=== PATIENT | female | born 1955 | race Two or more races ===

== ENCOUNTER 2021-12-28 12:59 | Outpatient (REF) | payer MEDICARE, SELFPAY ==
--- NOTE | ~2021-12-28 | MM_ITS ---
EXAMINATION: MM SCREENING DIGITAL BREAST TOMOSYNTHESIS, BILATERAL CLINICAL INFORMATION: Screening. Asymptomatic. The lifetime risk of breast cancer based on the Tyrer-Cuzick Model is 6%. COMPARISON: Mammography: 06/29/2018, 05/20/2017, 02/21/2015 TECHNIQUE: Digital breast tomosynthesis is performed in both the craniocaudal and mediolateral oblique views along with computer-aided detection (CAD). Synthesized 2D images are generated from the tomosynthesis. FINDINGS: There are scattered areas of fibroglandular density (ACR BI-RADS breast composition Category b). There are no significant masses, abnormal calcifications, or other abnormalities. Parenchymal pattern is similar to prior studies. There is no developing density or architectural abnormality. The axilla and skin contours are unremarkable. No significant changes. MM/MM tomosynthesis screening BI IMPRESSION: No mammographic evidence of malignancy. ASSESSMENT: BI-RADS 1: Negative RECOMMENDATION: Routine annual mammography screening. This patient's information was entered into a reminder system with a target due date for their next mammogram.
--- NOTE | ~2021-12-28 | MM_ITS ---
EXAMINATION: BONE DENSITOMETRY CLINICAL INDICATION: Encounter for screening for osteoporosis. Postmenopausal. COMPARISON: This is the patient's baseline examination. TECHNIQUE: Using a [email or web address] DXA System (software version: 13.1) manufactured by [employer], dual-energy x-ray absorptiometry was performed of the lumbar spine and left hip. The images are of good technical quality. Summary results are attached. FINDINGS: AP SPINE L1-L4: BMD 1.271 g/cm2, Z-score 1.6, T-score 0.8, normal. LEFT FEMUR, NECK: BMD 0.725 g/cm2, Z-score -1.3, T-score -2.3, osteopenia. LEFT FEMUR, TOTAL: BMD 0.649 g/cm2, Z-score -2.2, T-score -2.8, osteoporosis. IDENTIFIED RISK FACTORS: Menopause. Height loss. HISTORY OF FRACTURE: None listed. MEDICATIONS: Vitamin D. MM/XR DEXA axial skeleton IMPRESSION: 1. DIAGNOSIS: Osteoporosis based on the lowest T-score value of -2.8 in the total femur applying World Health Organization criteria. 2. 10-YEAR FRACTURE RISK PREDICTION, FRAX: Major osteoporotic fracture (clinical spine, forearm, hip or shoulder) 6.3%. Hip fracture 1.1%. 3. Treatment Recommendations: NOF guidelines recommend consideration for treatment in postmenopausal women and men age 50 and older presenting with the following: -A hip or vertebral (clinical or morphometric) fracture. -T-score less than or equal to -2.5 at the femoral neck or spine after appropriate evaluation to exclude secondary causes. -Low bone mass at the hip or spine and a 10-year fracture probability by FRAX of greater than or equal to 3% for hip fracture or greater than or equal to 20% for major osteoporotic fracture based on the [place] adapted WHO algorithm. 4. Other Recommendations: All treatment decisions require clinical judgment and consideration of individual patient factors, including patient preferences, comorbidities, previous drug use, risk factors not captured in the FRAX model (e.g. frailty, falls, vitamin D deficiency, increased bone turnover, interval significant decline in bone density) and possible under or overestimation of fracture risk by FRAX. Additional medical evaluation for secondary cause of low bone mineral density may be appropriate. FUTURE SCAN RECOMMENDATION: People with diagnosed cases of osteoporosis or at high risk for fracture should have regular bone mineral density tests. For patients eligible for Medicare, routine testing is allowed once every 2 years. The testing frequency can be increased to one year for patients who have rapidly progressing disease, those who are receiving or discontinuing medical therapy to restore bone mass, or have additional risk factors.
== END 2021-12-28 13:00 | disposition home or self-care (01) ==
LOC: HO.MAMMO 12:59
PROVIDERS: PCP Internal Medicine; Visit Provider Internal Medicine
DX: Z13.820 Encounter for screening for osteoporosis (principal); Z78.0 Asymptomatic menopausal state; Z12.31 Encounter for screening mammogram for malignant neoplasm of breast
CPT/HCPCS: 77063; 77067; 77080

== ENCOUNTER → 2022-07-02 13:02 | Outpatient (BNVA) | payer MEDICARE, SELFPAY | PROVIDERS: PCP Internal Medicine; Visit Provider Internal Medicine Endocrinology, Diabetes & Metabolism | DX: E21.0 Primary hyperparathyroidism (principal) | CPT/HCPCS: 99202 ==

== ENCOUNTER 2022-10-29 12:23 | Outpatient (REF) | payer OTHER, SELFPAY ==
[2022-10-29 14:33] LABS: Vitamin D 25-OH Total 55.2 ng/mL (>30)
[2022-10-30 11:38] LABS: Calcium (PTHI) 9.8 mg/dL (8.6-10.4); PTHI 114 pg/mL (16-77)
== END 2022-10-29 12:24 | disposition home or self-care (01) ==
LOC: HO.LAB 12:23
PROVIDERS: PCP Internal Medicine; Visit Provider Internal Medicine Endocrinology, Diabetes & Metabolism
DX: E34.9 Endocrine disorder, unspecified (principal)
CPT/HCPCS: 36415; 82306; 83970; 99212

== ENCOUNTER 2022-11-11 13:45 | Outpatient (REF) | payer OTHER, SELFPAY ==
[2022-11-11 15:01] LABS: Total Volume 24 Hour Urine 2225 mL
[2022-11-11 15:11] LABS: Creatinine, 24Hr Urine 1.6 G/Day (1.0-2.0); Creatinine, mg/dL 71.33
[2022-11-12 17:53] LABS: Calcium, 24 Hr Urine 149 mg/24 h; Calcium/Creatinine Ratio 97 mg/g creat (30-275); Creatinine 24Hr Urine 1.54 g/24 h (0.50-2.15)
== END 2022-11-11 13:46 | disposition home or self-care (01) ==
LOC: HO.LNP 13:45
PROVIDERS: Visit Provider Internal Medicine Endocrinology, Diabetes & Metabolism
DX: E34.9 Endocrine disorder, unspecified (principal)
CPT/HCPCS: 82340; 82570

== ENCOUNTER 2022-12-30 12:43 | Outpatient (REF) | payer MEDICARE, SELFPAY ==
--- NOTE | ~2022-12-30 | MM_ITS ---
EXAMINATION: MM SCREENING DIGITAL BREAST TOMOSYNTHESIS, BILATERAL CLINICAL INFORMATION: Screening. Asymptomatic. The lifetime risk of breast cancer based on the Tyrer-Cuzick Model is 7%. COMPARISON: Mammography: 12/28/2021, 06/29/2018, 05/20/2017 TECHNIQUE: Digital breast tomosynthesis is performed in both the craniocaudal and mediolateral oblique views along with computer-aided detection (CAD). Synthesized 2D images are generated from the tomosynthesis. FINDINGS: There are scattered areas of fibroglandular density (ACR BI-RADS breast composition Category b). There are no significant masses, abnormal calcifications, or other abnormalities. No architectural abnormality or developing density or significant change from prior studies. The axilla and skin contours are unremarkable. MM/MM tomosynthesis screening BI IMPRESSION: No mammographic evidence of malignancy. ASSESSMENT: BI-RADS 1: Negative RECOMMENDATION: Routine annual mammography screening. This patient's information was entered into a reminder system with a target due date for their next mammogram.
== END 2022-12-30 12:44 | disposition home or self-care (01) ==
LOC: HO.MAMMO 12:43
PROVIDERS: Visit Provider Internal Medicine
DX: Z12.31 Encounter for screening mammogram for malignant neoplasm of breast (principal)
CPT/HCPCS: 77063; 77067

== ENCOUNTER → 2023-02-25 12:44 | Outpatient (BNVA) | payer MEDICARE, SELFPAY | PROVIDERS: PCP Internal Medicine; Visit Provider Internal Medicine Endocrinology, Diabetes & Metabolism | DX: E34.9 Endocrine disorder, unspecified (principal) | CPT/HCPCS: 99212 ==

== ENCOUNTER 2023-06-13 09:55 | Outpatient (REF) | payer MEDICARE, SELFPAY ==
[2023-06-13 12:00] LABS: Cholesterol 146 mg/dL (<200); HDL Cholesterol 38 mg/dL (>40); LDL Cholesterol Calculated 76 mg/dL (<100); Triglycerides 162 mg/dL (<150)
[2023-06-13 12:01] LABS: Alanine Aminotransferase 26 U/L (0-31); Albumin Level 4.1 g/dL (3.5-5.0); Alkaline Phosphatase 74 U/L (39-117); Aspartate Amino Transferase 27 U/L (5-31); Bilirubin Direct 0.2 mg/dL (0.0-0.5); Bilirubin Total 0.6 mg/dL (0.0-1.0); Total Protein 7.2 g/dL (6.5-8.0)
[2023-06-13 12:39] LABS: Reflex LDLD? No
[2023-06-13 13:00] LABS: Creatinine Urine 138.71 mg/dL; Microalbumin Urine < 5.0 mg/L
[2023-06-17 11:09] LABS: TS Negative Control Passed; TS Panel A 0; TS Panel B 0; TS Positive Control Passed; TSpotTB Negative (Negative)
== END 2023-06-13 09:56 | disposition home or self-care (01) ==
LOC: HO.HHCL 09:55
PROVIDERS: Visit Provider Internal Medicine
DX: I10 Essential (primary) hypertension (principal); E11.9 Type 2 diabetes mellitus without complications; E21.3 Hyperparathyroidism, unspecified
CPT/HCPCS: 36415; 80061; 80076; 82043; 82570; 86481

== ENCOUNTER 2023-11-26 10:32 | Outpatient (AMB) | payer MEDICARE, SELFPAY ==
--- NOTE | 2023-11-26 10:34 | MHC.OFFVIS ---
Intake Vital Signs 11/26/23 10:35 Height 5 ft 3.74 in Weight 181 lb 14.102 oz BMI 31.5 BP 130/84 Blood Pressure Location Lt brachial Position Sitting Pulse 82 Pulse Source Pulse Oximeter Intake Visit Reasons: f/u hyperparathyroidism-# not in serv Intake Note: Patient present today for Hyperparathyroidism follow up visit. Emergency Preparedness Manager Required: Yes Emergency Preparedness Manager Language: Network Security Architect Name: Ana medical staff Information Interpreted: non-clinical & clinical Accompanied by: Self / Same As Patient Allergies No Known Allergies Allergy (Verified 11/26/23 10:41) Medication List - Last Reconciled 11/26/23 by Mino Navarro MD blood sugar diagnostic (Propable Verio test strips) As directed blood-glucose meter (Propable Verio Flex Meter) As directed calcium carbonate-vitamin D3 600 mg-25 mcg (1,000 unit) caps PO clotrimazole 1% appl topical estradiol 0.01%(0.1mg/gram) 1 g vaginal 2XW lancets (ThePresent.CoTouch Delica Plus Lancet) As directed loratadine 10 mg PO QAM losartan 50 mg PO DAILY lovastatin 20 mg PO QPM metformin ER 500 mg PO QPM HPI HPI Comments History of Present Illness Details 68 YO F with who is seen in consultation at the request of PCP for elevated PTH First noted to have high PTH -just learned about this . Had parathyroid surgery 10 yrs ago . Not sure of surgeon. Currently using Calcium supplement 600 mg BID . Takes 1000 IU of Vitamin D daily. Not Currently using HCTZ. Kidney stones: No Osteoporosis: No History of [place] use: no Biotin use: no Family history of high calcium or kidney stones: No DXA: Labs: Saw Dr. Aguirre for possible rexploration of parathyroids [facility] Medical History (Updated 07/02/22 @ 13:15 by Mino Navarro MD) Elevated parathyroid hormone Surgical History History of delivery Hx of partial thyroidectomy Family History Mother High blood pressure Prediabetes Father High blood pressure Social History Household Members: Spouse and Children Household Members Other:: , daughter Alcohol intake: never Patient Tobacco Use Status: Never used Tobacco Assessment & Plan Assessment & Plan (1) Elevated parathyroid hormone: Code(s): E34.9 - Endocrine disorder, unspecified Plan: This is a 68-year-old female with a history of primary hyperparathyroidism status post parathyroidectomy with persistent elevation of PTH and osteoporosis. Plan is to send the patient for re-exploration of the parathyroid to Dr. Haines at [facility] Orders: Referrals Ear/Nose/Throat Referral E34.9 - Endocrine disorder, unspecified Coding Level of Care Code Est Pt Level 3 (77211) Diagnoses Elevated parathyroid hormone E34.9
[2023-11-26 10:35] VITALS: BP 130/84; PULSE 82; BMI 31.5
== END 2023-11-26 10:56 | disposition home or self-care (01) ==
PROVIDERS: PCP Internal Medicine; Visit Provider Internal Medicine Endocrinology, Diabetes & Metabolism
DX: E34.9 Endocrine disorder, unspecified (principal)
CPT/HCPCS: 99213

== ENCOUNTER → 2023-11-26 10:32 | Outpatient (BNVA) | payer MEDICARE, SELFPAY | PROVIDERS: PCP Internal Medicine; Visit Provider Internal Medicine Endocrinology, Diabetes & Metabolism | DX: E34.9 Endocrine disorder, unspecified (principal) | CPT/HCPCS: 99212 ==

== ENCOUNTER 2024-01-05 12:47 | Outpatient (REF) | payer MEDICARE, SELFPAY | END 2024-01-05 12:48 | disposition home or self-care (01) | LOC: HO.MAMMO 12:47 | PROVIDERS: PCP Internal Medicine; Visit Provider Internal Medicine | DX: Z12.31 Encounter for screening mammogram for malignant neoplasm of breast (principal) | CPT/HCPCS: 77063; 77067 ==

== ENCOUNTER → 2024-01-05 13:00 | Outpatient (BNV) | payer MEDICARE, SELFPAY | PROVIDERS: PCP Internal Medicine; Visit Provider Radiology Diagnostic Radiology | DX: Z12.31 Encounter for screening mammogram for malignant neoplasm of breast (principal) | CPT/HCPCS: 77063; 77067 ==

== ENCOUNTER 2025-01-10 12:40 | Outpatient (REF) | payer MEDICARE, SELFPAY ==
--- OUTSIDE RECORDS SUMMARY | 2025-01-10 14:57 | XMS_ITS | Clinical Summary ---
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) TEST BLOOD SUGAR TWICE DAILY 1 kit 3 Active fluticasone (Flonase) 50 MCG/ACT nasal spray Administer 1 spray into each nostril Once per day. 16 g 2 4 Active losartan-hydroCHL OROthiazide (Hyzaar) 100-12.5 MG tabletIndications :Primary hypertension Take 1 tablet by mouth Once per day. 90 tablet 3 4 08/16/20 25 Active calcium carbonate 1500 (600 Ca) MG tabletIndications :Hyperparathyroid ism ([facility]) take 1 tablet once a day PO 90 tablet 3 4 Active estradiol (Estrace) 0.1 MG/GM vaginal cream 1g vaginally twice weekly as needed 85 g 1 4 Active SITagliptin (Januvia) 100 MG tabletIndications :Type 2 diabetes mellitus without complication, without long-term current use of insulin ([facility]) Take 1 tablet (100 mg) by mouth Once per day. 90 tablet 3 4 08/16/20 25 Active lovastatin (Mevacor) 20 MG tablet Take 1 tablet (20 mg) by mouth with evening meal. 90 tablet 3 4 08/16/20 25 Active loratadine (Claritin) 10 MG tabletIndications :Rhinorrhea TAKE 1 TABLET BY MOUTH EVERY DAY IN THE MORNING 90 tablet 3 5 Active Diclofenac Sodium 1 % gel Apply 1 inch topically if needed in the morning and at bedtime (pain). 60 g 5 01/13/20 25 Active glucose blood test strip Use 1x/d 100 each 11 5 12/14/19 26 Active OneTouch Delica Lancets 33G misc Use to test blood sugar 1x times daily 100 each 3 5 Active clotrimazole (Lotrimin) 1 % cream Apply topically 2 times daily for 28 days. 30 g 5 01/11/20 25 Active Hospital, Clinic, or Other Facility Administered Medication Ordered Dose Route Frequency Start Date End Date Status lidocaine (Xylocaine) 2 % injection 20 mgIndications:Inflamed skin tag 20 mg IJ Once 08/06/2024 Active Active Problems Problem Noted Date Diagnosed Date Osteoarthritis of fingers of both hands 12/14/19 25 Assessment & Plan (12/13/2024 1:04 PM EDT): She has Heberden's nodes which are symptomatic. Take Tylenol and Diclofenac gel PRN. Tinea pedis of right foot 12/13/2024 Assessment & Plan (12/13/2024 1:06 PM EDT): Use Clotrimazole cream. Gastroesophageal reflux disease 04/13/2024 Assessment & Plan (04/13/2024 12:45 PM EDT): - she will hold Lovastatin for 3 weeks and keep symptom diary - we discussed about small infraction meals - elevate the head of the bed at 30 degrees Skin tag 04/13/2024 Assessment & Plan (04/13/2024 12:48 PM EDT): - on her back - refer to dermatology At high risk for osteoporosis 06/16/2023 Assessment & Plan (06/16/2023 8:35 PM EDT): Patient is postmenopausal, discussed with her re risk of falls and fractures. Order Dexa scan Postmenopausal 06/16/2023 Diabetes due to underlying condition w oth circu latory comp 06/16/2023 Encounter for preventive health examination 06/06 Assessment & Plan (06/16/2023 8:50 PM EDT): Discussed with patient re increase fresh fruit and vegetable intake. Counseled re moderate exercise as tolerated, up to 20min/d Patient feels safe at home. PAP smear UTD. No need for PAP smear any longer due to age. Reconsult prn Mammogram: UTD, next one due on 12/2023 Bone density test: TBO Eye exam: UTD, next one due on 08/2023 CRC screen: UTD, next one due on 2023 Lipids/FBS: UTD, normal. Next one due on 06/2024 Vaccinations: PPSV 23 or PCV 20 today to complete pneumococcals + Influenza IZ. Zoster, Tdap and Coivd UTD, reccommended next Covid booster when available Dental visit: UTD, next one due on 08/2023 Exercise counseling 06/16/2023 Dietary counseling 06/16/2023 Allergic rhinitis due to pollen 04/17/2023 Senile osteoporosis 04/17/2023 Primary insomnia 04/17/2023 Metabolic syndrome X 04/17/2023 IFG (impaired fasting glucose) 04/17/2023 Tinea corporis 04/17/2023 Dyslipidemia 11/14/2022 Hypertension 11/14/2022 Assessment & Plan (12/13/2024 10:46 AM EDT): Controlled. Compliant w/meds Continue Hyzaar same dose Counseled re low salt diet/increase moderate physical activity. Check home BP BIW and prn CP/ANDERSON/HAMMOND Non smoking patient. F/u in 6 months Assessment & Plan (08/16/2024 11:49 AM EST): Controlled. Compliant w/meds Continue Hyzaar same dose Counseled re low salt diet/increase moderate physical activity. Check home BP BIW and prn CP/ANDERSON/HAMMOND Non smoking patient. F/u in 6 months Assessment & Plan (04/13/2024 12:44 PM EDT): Controlled. Compliant w/meds Continue Hyzaar same dose Counseled re low salt diet/increase moderate physical activity. Check home BP BIW and prn CP/ANDERSON/HAMMOND Non smoking patient. F/u in 6 months Assessment & Plan (04/23/2023 11:59 AM EDT): BP is at goal. Continue losartan + HCTZ Counseled re low salt diet/increase moderate physical activity. Check home BP BIW and prn CP/ANDERSON/HAMMOND Non smoking patient. Order labs and fu with me in 6-8 weeks for PE. Assessment & Plan (12/26/2022 9:13 AM EDT): BP better controlled. Encouraged to take medication daily Continue lifestyle modifications. Counseled re low salt diet/increase moderate physical activity. Check home BP BIW and prn CP/ANDERSON/HAMMOND Non smoking patient. Continue losartan/hctz 100/12.5 once per day, FU with me in 2-3 months with labs. Assessment & Plan (11/14/2022 12:39 PM EST): Uncontrolled. Switch to losartan /HCTZ 100/12.5 Counseled re low salt diet/increase moderate physical activity. Check home BP BIW and prn CP/ANDERSON/HAMMOND Non smoking patient. FU with me in 4 weeks televisit. Type 2 diabetes mellitus without complication Assessment & Plan (12/13/2024 1:00 PM EDT): Controlled. A1c is at goal. Continue on Januvia. Counseled re more frequent low calorie/carb meals, avoid sweet beverages. Check fgstk once daily Encouraged physical activity as tolerated. FU in 3-4 months. Assessment & Plan (08/16/2024 11:56 AM EST): Controlled. A1c is at goal. Continue on Januvia Counseled re more frequent low calorie/carb meals, avoid sweet beverages. Check fgstk once daily + PRN hypoglycemia symptoms Encouraged physical activity as tolerated. Advised pt to bring glucometer to pharmacry to get it checked, may need a new one FU in 3-4 months. Assessment & Plan (04/13/2024 12:47 PM EDT): Controlled. A1c is at goal. Continue on Januvia Counseled re more frequent low calorie/carb meals. Check fgstk once daily + PRN hypoglycemia symptoms Encouraged physical activity as tolerated. Advised pt to bring glucometer to pharmacry to get it checked, may need a new one FU in 3-4 months. Assessment & Plan (08/26/2023 12:03 PM EST): Apparently controlled, FU A1c in 1 month Tolerates Januvia, no changes in medications FU with me in 2-3 months Counseled about Covid IZ Prescription for 3 months sent to pharmacy today Assessment & Plan (06/16/2023 8:34 PM EDT): Controlled. Has diarrhea with metformin. DC metformin, start Januvia 100 mg and fu with me in 2m. Counseled re more frequent low calorie/carb meals. Check fgstk 1x daily Encouraged physical activity as tolerated. Assessment & Plan (04/23/2023 11:58 AM EDT): Pt has hyperglycemia probably related to poor dietary choices Continue metformin same dose stressed importance of low calorie meals Counseled re more frequent low calorie/carb meals. Encouraged physical activity as tolerated. Get labs done prior to next appontment Assessment & Plan (11/14/2022 12:38 PM EST): Controlled. A1c is at goal. Continue onMetformin XR 500 mg/day. Counseled re more frequent low calorie/carb meals. Check fgstk once daily Encouraged physical activity as tolerated. FU in 3 months. Rhinorrhea 11/14/2022 Assessment & Plan (11/14/2022 12:40 PM EST): I prescribed prescription loratadine to use PRN. Hyperparathyroidism 11/02/2018 Assessment & Plan (12/13/2024 1:02 PM EDT): Seen by ENT and deemed not to be a surgical candidate at this time. Patient will schedule appointment with Dr. Navarro. Continue regular lab FU and refer back to ENT if needed. Assessment & Plan (08/17/2024 6:30 PM EST): Seen by [facility] and no surgical correction needed. Continue to fu with Dr Navarro Monitor PTH/Ca/Phos levels yearly Assessment & Plan (04/13/2024 12:58 PM EDT): - calcium supplementation for now and followed by Dr. Navarro, planting material remover - f/u with [facility] as well to discuss potential re-exploration of her parathyroid gland Assessment & Plan (04/23/2023 11:58 AM EDT): Seen by planting material remover, calcium phosphorous not at goal. Continue phosphorous daily and FU with neck surgery Assessment & Plan (11/14/2022 12:38 PM EST): FU with endocrinology. Hallux valgus of right foot 11/02/2018 Assessment & Plan (08/16/2024 11:53 AM EST): Mild, seen by podiatry, no need for surgical intervention. Advised to use bunion separator with foot splint daily to decrease pain Assessment & Plan (04/13/2024 12:46 PM EDT): - information regarding podiatry referral given to pt to schedule her appointment Assessment & Plan (06/16/2023 8:33 PM EDT): Pain not releived with toe splint. Refer to podiatry Calcaneal spur 07/13/2018 Assessment & Plan (12/13/2024 1:05 PM EDT): Continue wearing plantar insoles and use cane as needed. Will be referred to Podiatry PRN if she wants surgical approach. Foot pain 07/03/2018 Synovial cyst 07/03/2018 Stasis dermatitis 12/30/2017 Low vision, both eyes 12/30/2017 Impacted cerumen 12/30/2017 Hyperlipidemia 04/22/2017 H/O parathyroidectomy 04/22/2017 Encounters Date Type Department Care Team Description 12/13/2024 10:30 AM EDT Office Visit [facility] [address] [place] [phone] Regine Linda MD Type 2 diabetes mellitus without complication, without long-term current use of insulin ([facility]) (Primary Dx); Primary hypertension; Hyperparathyroidism ([facility]); Osteoarthritis of fingers of both hands; 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 ([facility]); Calcaneal spur, unspecified laterality; Tinea pedis of right foot 12/13/2024 Telephone [facility] [address] [place] [address] [phone] Regine Linda MD Appointment Confirmation 12/13/2024 Travel 12/07/2024 Patient Outreach [address] [id number] Regine Linda MD Pre-visit Planning (SDOH screening is negative and Tobacco screening is negative) 10/26/2024 Refill [facility] [address] [place] [phone] Regine Linda MD Rhinorrhea 10/13/[address] [phone] Regine Linda MD FYI from Last 3 Months Immunizations Name Administration Dates Next Due INFLUENZA VACCINE QUADRIVALE NT RECOMBINANT PRESERVATIVE FREE RIV4 08/05/2020,10/12/2019 Influenza High-dose Quadriva lent Preservative Free 06/16/2023,07/24/2022,08/06/2021 Influenza injectable quadriv alent IIV4 with preservative 07/03/2018 Influenza, High Dose Seasona l, Preservative Free 08/06/2024 Influenza, IIV3, injectable 10/20/2013, 2 Influenza, seasonal, injecta ble, preservative free 06/26/2016 Pfizer Covid-19 Vaccine 12+ 08/06/2024,,01/03/2021 Pneumococcal Conjugate PCV 13 11/29/2021 Pneumococcal Conjugate PCV 20 06/16/2023 Tdap 11/29/2021 Zoster, Recombinant 08/04/2023,05/05/2023 Zoster, live 11/02/2018 Family History Medical History Relation Name Comments Cataracts Father Relation Name Status Comments Father Social History Tobacco Use Types Packs/Day Years Used Date Smoking Tobacco: Never Smokeless Tobacco: Never Tobacco Cessation:Counseling Given: Not Answered Alcohol Use Standard Drinks/Week Comments Never 0 (1 standard drink = 0.6 oz pur e alcohol) Depression Answer Date Recorded Patient Health Questionnaire-9 Score 8 04/13/2024 Patient Health Questionnaire-9 Score 8 04/13/2024 Last PHQ-9: Questionnaire Data Not on file 0 04/13/2024 Housing Stability Answer Date Recorded What is your housing situation today? I have dianne izquierdo 03/11/[address] you li ve. Do you have problems with any of the following? None of the above 03/11/2024 Food Insecurity Answer Date Recorded Within the past 12 months, y ou worried that your food would run out before you got money to buy more: Never True 03/11/2024 Within the past 12 months,th e food you bought just didn't last and you didn't have enough money to get more: Never True 03/2024 Transportation Answer Date Recorded In the past 12 months, has l ack of transportation kept you from medical appts, meetings, work or from getting things needed for daily living? No 03/11/2024 Utilities Answer Date Recorded In the past 12 months, has t he electric, gas, oil or water company threatened to shut off services in your home? No 03/11/2024 Depression Answer Date Recorded Patient Health Questionnaire-2 Score 1 04/13/2024 Internet Access Answer Date Recorded Internet Access Q1 Yes 12/07/2024 Internet Access Q2 Not on file 12/07/2024 Comments No Sex and Gender Information Value Date Recorded Sex Assigned at Female 08/05/2022 10:31 AM EDT Legal Sex Female 10:31 AM EDT Gender Identity Female 08/05/2022 10:31 AM EDT Sexual Orientation Straight 08/05/2022 10 :31 AM EDT Last Filed Vital Signs Vital Sign Reading Time Taken Comments Blood Pressure 138/79 12/13/2024 10:23 AM EDT Pulse 88 12/13/2024 10:23 AM EDT Temperature 35.6 ??C (96 ??F) 12/13/2024 10:23 AM EDT Respiratory Rate 16 08/16/2024 11:06 AM EST Oxygen Saturation 97% 12/13/2024 10:23 AM EDT Inhaled Oxygen Concentration - - Weight 80.8 kg (178 lb 2 oz) 12/13/2024 10:23 AM EDT Height 160 cm (5' 3 ) 12/13/2024 10:23 AM EDT Body Mass Index 31.55 12/13/2024 10:23 AM EDT Plan of Treatment Health Maintenance Due Date Last Done Comments CT Colonography 1955 FIT DNA/Cologuard 1955 FIT 1955 FOBT 1955 Sigmoidoscopy 1955 Alcohol/Substance Use Screening 1967 Hepatitis C Screening 1973 Colonoscopy 03/08/2024 03/08/2014 Colorectal Cancer Screening 03/08/2024 Diabetes: Urine Protein Screening 06/13/2024 06/13/2023, 02/27/2022 Lipid Panel 06/13/2024 06/13/2023, 02/27/2022 Mammogram 01/04/2025 01/05/2024, 12/05, 12/30/2022, Additional history exists Diabetes: Hemoglobin A1C 02/13/2025 024, 04/13/2024, 04/23/2023, Additional history exists Depression Screening 04/13/2025 04/13/2024, 04/13/20 24 Tobacco Screening 08/16/2025 08/16/2024 SDOH Screening 12/07/2025 12/07/2024 Diabetes: Foot Exam 12/13/2025 12/13/2024, 12/13/2024, 12/13/2024, Additional history exists Eye Exam 05/06/2026 05/06/2024, 08/10/2023, 05/06/2024, Additional history exists RSV Patients and Patients Aged 60 years or older (1 - 1-dose 75+ series) 2030 DTaP/Tdap/Td Vaccines (2 - Td or Tdap) 11/29/2031 11/29/2021 Pneumococcal Vaccine: 50+ Years Completed 06/16/2023, 11/29/2021 Zoster Vaccines Completed 08/04/2023, 07/3 10/2022, 11/02/2018 COVID-19 Vaccine Completed 08/06/2024, , 11/29/2021, Additional history exists Influenza Vaccine Completed 08/06/2024, , 07/24/2022, Additional history exists HIB Vaccines Aged Out No longer eligi ble based on patient's age to complete this topic HPV Vaccines Aged Out No longer eligi ble based on patient's age to complete this topic Hepatitis A Vaccines Aged Out No long er eligible based on patient's age to complete this topic Hepatitis B Vaccines Aged Out No long er eligible based on patient's age to complete this topic IPV Vaccines Aged Out No longer eligi ble based on patient's age to complete this topic Meningococcal Vaccine Aged Out No albert fidel eligible based on patient's age to complete this topic RSV under 20 months Aged Out No longe r eligible based on patient's age to complete this topic Rotavirus Vaccines Aged Out No longer eligible based on patient's age to complete this topic Procedures Procedure Name Priority Date/Time Associated Diagnosis Comments POCT GLUCOSE Routine 12/13/2024 10:37 AM EDT Type 2 diabetes mellitus without complication, without long-term current use of insulin ([facility]) POCT GLYCATED HEMOGLOBIN, TOTAL Routine 08/16/2024 11:24 AM EST Type 2 diabetes mellitus without complication, without long-term current use of insulin (CMS/HCC) BI MAMMOGRAM SCREENING TOMOSYNTHESIS BILATERAL Routine 01/05/2024 1:05 PM EDT ALBUMIN, RANDOM URINE W/CREATININE Routine 06/13/2023 10:08 AM EDT LIPID PANEL WITH REFLEX TO DIRECT LDL Routine 06/13/2023 10:00 AM EDT Primary hypertension Type 2 diabetes mellitus without complication, without long-term current use of insulin (CMS/HCC) HM COLONOSCOPY Routine 03/08/2014 3:15 PM EDT from Last 3 Months or Most Recently Relevant to Health Maintenance Results * POCT Glucose (12/13/2024 10:37 AM EDT) Pathologist [facility] Glucose Blood, POC 101 60 - 200 mg/dL QC Media Lot # [id number] Lot# Expiration Date [id number] Blood Capillary blood specimen / Unknown 12/13/2024 10:37 AM EDT Regine Linda MD POINT OF CARE TEST ENTER /EDIT ORDERABLES Final Result * (ABNORMAL) POCT HGB A1C (08/16/2024 11:24 AM EST) Pathologist [facility] Hemoglobin A1C 6.5(A) 4.0 - 6.0 % QC Media Lot # [id number] Lot# Expiration Date [id number] Blood 08/16/2024 11:2 4 AM EST Regine Linda MD POINT OF CARE TEST ENTER /EDIT ORDERABLES Final Result * BI Mammogram Screening Tomosynthesis Bilateral (01/05/2024 1:05 PM EDT) Anatomical Region Laterality Modality Breast Bilateral Mammography 01/05/2024 1:05 PM EDT Narrative 01/27/2024 5:46 AM EDT ? [facility] ? [address] ?[place] [id number] ? Mammography Report ? Signed ? Patient: Raji,Ann ?MR#: [id number] ?? [id number] ? : 1955 ?Acct:[id number] ? Age/Sex: 68 / F ?ADM Date: 04/01/24 ? Loc: HO.MAMMO ? Attending Dr: Aarti. Alexei MD ? Ordering Physician: Regine Linda MD ?Results: 1Ne ?? gative ? Date of Service: 01/05/24 ?Follow Up: 1 Year From Orig ?? inal Mammogram ? Procedure(s): MM tomosynthesis screening BI ?? Accession Number(s): [id number] ? cc: Regine Linda MD ? EXAMINATION: ?? MM SCREENING DIGITAL BREAST TOMOSYNTHESIS, BILATERAL ? CLINICAL INFORMATION: ? Screening. Asymptomatic. ? COMPARISON: ?? Mammography: This study is compared with prior exams dating back to ?? 2017. ? TECHNIQUE: ?? Digital breast tomosynthesis is performed in both the craniocaudal and ?? mediolateral oblique views along with computer-aided detection (CAD). ?? Synthesized 2D images are generated from the tomosynthesis. ? FINDINGS: ?? There are scattered areas of fibroglandular density (ACR BI-RADS breast ?? composition Category b). ? There are no significant masses, abnormal calcifications, or other ?? abnormalities. ? MM/MM tomosynthesis screening BI ?? IMPRESSION: ?? No mammographic evidence of malignancy. ? ASSESSMENT: ? BI-RADS BI-RADS 1 - Negative ? RECOMMENDATION: ?? Routine annual mammography screening. ? 1 year F/U ? This examination should not preclude the clinical evaluation of a ?? suspicious palpable abnormality. ? This patient's information was entered into a reminder system with a ?? target due date for their next mammogram. ? Dictated By: ?Yolanda Sood MD ? Signed By: ?<Electronically signed by Yolanda Sood MD in OV> ? 01/27/24 0543 ? DD/ ? TD/TT: ? Rfid Developer: ? Procedure Note Donotuseinterpreter, Image - [facility] [address] [place], [place] [address] Mammography Report Signed Patient: Ledy Alegria LMR#: [id number] : 6Acct:[id number] Age/Sex: 68 / FADM Date: 01/05/24 Loc: HO.MAMMO Attending Dr: Regine Linda MD Ordering Physician: Regine Linda MDResults: 1Ne gative Date of Service: 01/05/24Follow Up: 1 Year From Orig inal Mammogram Procedure(s): MM tomosynthesis screening BI Accession Number(s): [id number] cc: Regine Linda MD EXAMINATION: MM SCREENING DIGITAL BREAST TOMOSYNTHESIS, BILATERAL CLINICAL INFORMATION: Screening. Asymptomatic. COMPARISON: Mammography: This study is compared with prior exams dating back to 2018. TECHNIQUE: Digital breast tomosynthesis is performed in both the craniocaudal and mediolateral oblique views along with computer-aided detection (CAD). Synthesized 2D images are generated from the tomosynthesis. FINDINGS: There are scattered areas of fibroglandular density (ACR BI-RADS breast composition Category b). There are no significant masses, abnormal calcifications, or other abnormalities. MM/MM tomosynthesis screening BI IMPRESSION: No mammographic evidence of malignancy. ASSESSMENT: BI-RADS BI-RADS 1 - Negative RECOMMENDATION: Routine annual mammography screening. 1 year F/U This examination should not preclude the clinical evaluation of a suspicious palpable abnormality. This patient's information was entered into a reminder system with a target due date for their next mammogram. Dictated By: Yolanda Sood MD Signed By: <Electronically signed by Yolanda Sood MD in OV> 01/27/24 0543 DD/ 1305 TD/TT: Rfid Developer: Regine Linda MD IMG BI PROCEDURES Final Result * Albumin, Random Urine W/Creatinine (06/13/2023 10:08 AM EDT) Creatinine, Urine 138.71 mg/dL [facility] Microalbumin Urine <5.0 mg/L H [facility] Microalbum Creatinine Ratio Ur TNP <30 ug/mg cr [facility] Comment:Unable to calculate albumin/creatinine ratio due to lowmicroalbumin or creatinine result. 06/13/2023 10:0 8 AM EDT 06/13/2023 11:47 AM EDT us Regine Linda MD LAB URINE ORDERABLES Fin al Result [facility] [address] [place] [phone] * (ABNORMAL) Lipid Panel with Reflex to Direct LDL (06/13/2023 10:00 AM EDT) Triglycerides 162(H) <150 mg/dL [facility] Comment:Desirable Triglyceri de: less than 150 mg/dLBorderline High Triglyceride 150-199 mg/dLHigh Triglyceride: 200-499 mg/dLVery High Triglyceride: greater than or equal to 5OO mg/dL Cholesterol 146 <200 mg/dL [facility] Comment:Desirable Cholestero l: less than 200 mg/dLBorderline High Cholesterol: 200-239 mg/dLHigh Cholesterol: greater than 239 mg/dL LDL Cholesterol Calculated 76 <100 mg/dL [facility] Comment:Desirable LDL: less than 100 mg/dLNear Optimal/Above Optimal LDL: 110- 129 mg/dLBorderline High LDL: 130-159 mg/dLHigh LDL: 160-189 mg/dLVery High LDL: greater than or equal to 190 mg/dL HDL Cholesterol 38(L) >40 mg/dL [facility] Comment:Desirable HDL: great er than 40 mg/dL Note: This HDL assay may give artificially low results in patients with liver disease. 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
--- OUTSIDE RECORDS SUMMARY | 2025-01-10 14:57 | XMS_ITS | Continuity of Care Document ---
Author Organization [facility] Address [address] [place] [address] Phone Care Team Providers Care Hardware Designer Name Role Phone Unavailable Unavailable Unavailable Allergies, Adverse Reactions, Alerts Substance Reaction Status Criticality No Known Allergies Active No Inform ation Medications Medication Instructions Dosage Effective Dates (start - stop) Status Comments LISINOPRIL (unknown strength) take 1 tablet by oral route every day Not Available - Active ACTOS (unknown strength) take 1 tablet by oral route every day Not Available - Active GLIPIZIDE (unknown strength) take 1 tablet by oral route every day before meals Not Available - Active SIMVASTATIN (unknown strength) take 1 tablet by oral route every day in the evening Not Available - Active VITAMIN D3 (unknown strength) take 1 tablet by oral route every day Not Available - Active Procedures Procedure Date Refraction New Pt Complete Advance Directives Directive Yes / No Effective Date File Name No Information Encounters Encounter Description Practice Location Reason(s) For Visit Diagnoses Date Provider Providers Copied on Encounter [facility], [address] [place] [address], [id number] , tel: [phone] [facility] No Information No Information [facility], [address], [place], [id number] , tel:+ [phone] [facility] Presence of intraocular lensPeripheral pterygium, stationary, left eyeType 2 diabetes mellitus without complicationsLong term (current) use of oral antidiabetic drugsPresbyopia 7 Jax Calhoun. [address] [place], [id number], . tel:[phone] Referring Provider: Chivo Bejarano, [address] [facility] [address], [place], [address]. tel:[phone] Family History Family Member Type Diagnosis Age At Onset No Information Payers Payer name Insurance type Covered green party ID Jessica carey(s) [employer] Claims Dept [id number] Social History Type Description Quantity Date Captured Comments Alcohol Use Details No Caffeine Use Details 3 cups per day Tobacco Use Status No Information Smoking Status Never smoker Sex Female Chief Complaint And Reason For Visit No Information Reason For Referral Reason For Referral No Information History Of Present Illness Encounter Date Complaint History Of Prese nt Illness No Information Functional Status Date Functional Assessmen t No Information Instructions Date Instruction Additional Infor matmaria isabel - Will continue to m onitor with yearly exams. Related to Peripheral pterygium, stationary, left eye - Slight subluxation of PC IOL(s). Monitor Related to Presence of intraocular lens - No diabetic retino kellee. Recommend yearly diabetic eye exam. Discussed with patient importance of good blood sugar control with regular visits with PCP. Related to Type 2 diabetes mellitus without complications - New glasses Rx was given today . Related to Presbyopia - See Plan #1 Related to longterm (current) use of oral antidiabetic drugs Assessments Type Assessment Date No Information Patient Care Teams Name Effective Dates (start - stop) Status Members No Information
--- OUTSIDE RECORDS SUMMARY | 2025-01-10 14:58 | XMS_ITS | Encounter Summary ---
Author Organization [employer] [facility] Address [address] [facility] 7[address] [place] [address] Care Team Providers Care Invoice Clerk Name Role Phone Regine Linda MD Primary Care Provider + Encounter Details Date Type Department Care Team (Late st Contact Info) Description 03/25/2023 Abstract [facility] MEDICINE [address] [employer], [place] [phone] Regine Linda MD [address] [place], [place] [phone] Social History Tobacco Use Types Packs/Day Years Used Date Smoking Tobacco: Never Smokeless Tobacco: Never Alcohol Use Standard Drinks/Week Comments Never 0 (1 standard drink = 0.6 oz pur e alcohol) Depression Answer Date Recorded Patient Health Questionnaire-2 Score 0 12/26/2022 Comments Unknown Sex and Gender Information Value Date Recorded Sex Assigned at Female 08/05/2022 10:31 AM EDT Legal Sex Female 10:31 AM EDT Gender Identity Female 08/05/2022 10:31 AM EDT Sexual Orientation Straight 08/05/2022 10 :31 AM EDT documented as of this encounter Plan of Treatment Not on file documented as of this encounter Procedures Procedure Name Priority Date/Time Associated Diagnosis Comments COLONOSCOPY Routine 03/08/2014 3:15 PM EDT documented in this encounter Results * Hm Colonoscopy (03/08/2014 3:15 PM EDT) Colonoscopy Normal Normal Narrative Ami Benavides - 03/08/2014 3:15 PM EDT Recommended 10 year follow up us Historical Provider HEALTH MAINTENANCE Edited Result - Final documented in this encounter Visit Diagnoses Not on filedocumented in this encounter Care Teams Invoice Clerk Relationship Specialty Start Date End Date Regine Linda MD [address] [place] [address] PCP - General Family Medicine 10/06/18 documented as of this encounter
--- OUTSIDE RECORDS SUMMARY | 2025-01-10 14:58 | XMS_ITS | Encounter Summary ---
Author Organization [employer] [facility] Address [address] [place] [address], [place] [address] Care Team Providers Care Enamel Finisher Name Role Phone Regine Linda MD Primary Care Provider + Reason for Visit * Reason Onset Date Comments Med Refill 05/20/2023 Encounter Details Date Type Department Care Team (Late st Contact Info) Description 05/20/2023 Refill [facility] MEDICINE [address] [place], [place] [phone] Regine Linda MD [address] [place], [place] [phone] Primary hypertension Social History Tobacco Use Types Packs/Day Years [...] on file documented as of this encounter Visit Diagnoses Diagnosis Primary hypertension Unspecified essential hypertension documented in this encounter Care Teams Enamel Finisher Relationship Specialty Start Date End Date Regine Linda MD [address] [place], [place] [phone] PCP - General Family Medicine 10/06/18 documented as of this encounter
== END 2025-01-10 12:41 | disposition home or self-care (01) ==
LOC: HO.MAMMO 12:40
PROVIDERS: PCP Internal Medicine; Visit Provider Internal Medicine
DX: Z12.31 Encounter for screening mammogram for malignant neoplasm of breast (principal)
CPT/HCPCS: 77063; 77067

== ENCOUNTER → 2025-01-10 13:00 | Outpatient (BNV) | payer MEDICARE, SELFPAY | PROVIDERS: PCP Internal Medicine; Visit Provider Internal Medicine | DX: Z12.31 Encounter for screening mammogram for malignant neoplasm of breast (principal) | CPT/HCPCS: 77063; 77067 ==

== ENCOUNTER → 2025-02-15 11:00 | Outpatient (BNV) | payer MEDICARE, SELFPAY | PROVIDERS: PCP Internal Medicine; Visit Provider Internal Medicine | DX: R92.8 Other abnormal and inconclusive findings on diagnostic imaging of breast (principal) | CPT/HCPCS: 76642; 77065; G0279 ==

== ENCOUNTER 2025-02-15 11:04 | Outpatient (REF) | payer MEDICARE, SELFPAY ==
--- NOTE | ~2025-02-15 | US_ITS ---
EXAMINATION: MM DIAGNOSTIC DIGITAL BREAST TOMOSYNTHESIS, LEFT Limited left breast ultrasound. CLINICAL INFORMATION: Call back from screening for asymmetry in the inferior left breast on MLO view. COMPARISON: Mammography: [facility] on PACS. TECHNIQUE: Digital breast tomosynthesis is performed in both the craniocaudal and mediolateral oblique views along with computer-aided detection (CAD). Synthesized 2D images are generated from the tomosynthesis. FINDINGS: There are scattered areas of fibroglandular density (ACR BI-RADS breast composition Category b). Previously seen asymmetry in the inferior left breast on MLO view does not persist on additional imaging projections and likely represented overlapping breast tissue. There are no significant masses, abnormal calcifications, or other abnormalities. Targeted color Doppler ultrasound scanning in the left breast from 2-6 o'clock demonstrates normal fibronodular breast tissue. There is no sonographic abnormality. US/US breast LT limited mamm only IMPRESSION: Left: Negative. ASSESSMENT: BI-RADS BI-RADS 1 - Negative RECOMMENDATION: 1 year F/U Results were provided to the patient at time of visit by the technologist. This patient's information was entered into a reminder system with a target due date for their next mammogram. Electronically signed by: Liliana Bradley DO 02/15/2025 12:48 PM EDT
--- OUTSIDE RECORDS SUMMARY | 2025-02-15 12:33 | XMS_ITS | Clinical Summary ---
Author Organization [employer] Address [address] 7[address] [place] [address] Care Team Providers Care Barrel Bung Remover And Dumper Name Role Phone Regine Linda MD Primary Care Provider + Allergies No known active allergies Medications Blood Glucose Monitoring Suppl (Fonixuch Verio Flex System) w/Device kitIndications:Ty pe 2 diabetes mellitus without complication, without long-term current use of insulin ([facility]) TEST BLOOD SUGAR TWICE DAILY 1 kit 3 Active fluticasone (Flonase) 50 MCG/ACT nasal spray Administer 1 spray into each nostril Once per day. 16 g 2 4 Active losartan-hydroCHL OROthiazide (Hyzaar) 100-12.5 MG tabletIndications :Primary hypertension Take 1 tablet by mouth Once per day. 90 tablet 3 4 08/16/20 25 Active calcium carbonate 1500 (600 Ca) MG tabletIndications :Hyperparathyroid ism ([facility]) take 1 tablet once a day PO 90 tablet 3 4 Active estradiol (Estrace) 0.1 MG/GM vaginal cream 1g vaginally twice weekly as needed 85 g 1 4 Active SITagliptin (Januvia) 100 MG tabletIndications :Type 2 diabetes mellitus without complication, without long-term current use of insulin ([facility]) Take 1 tablet (100 mg) by mouth Once per day. 90 tablet 3 4 08/16/20 25 Active lovastatin (Mevacor) 20 MG tablet Take 1 tablet (20 mg) by mouth with evening meal. 90 tablet 3 4 08/16/20 25 Active loratadine (Claritin) 10 MG tabletIndications :Rhinorrhea TAKE 1 TABLET BY MOUTH EVERY DAY IN THE MORNING 90 tablet 3 5 Active glucose blood test strip Use 1x/d 100 each 11 5 12/14/19 26 Active OneTouch Delica Lancets 33G misc Use to test blood sugar 1x times daily 100 each 3 5 Active Hospital, Clinic, or Other Facility Administered [...] Plan (08/17/2024 6:30 PM EST): Seen by [facility] team and no surgical correction needed. Continue to fu with Dr Navarro Monitor PTH/Ca/Phos levels yearly Assessment & Plan (04/13/2024 12:58 PM EDT): - calcium supplementation for now and followed by Dr. Navarro, warehouse operator - f/u with [facility] as well to discuss potential re-exploration of her parathyroid gland Assessment & Plan (04/23/2023 11:58 AM EDT): Seen by warehouse operator, calcium phosphorous not at goal. Continue phosphorous [...] Encounters Date Type Department Care Team Description 01/20/2025 Telephone [facility] MEDICINE [address] [place] [phone] Regine Linda MD April recall 01/10/2025 Orders Only [facility] MEDICINE [address] [place] [address] Regine Linda MD 12/13/2024 10:30 AM EDT Office Visit [facility] MEDICINE [address] [place] [phone] Regine Linda MD Type 2 diabetes mellitus without complication, without long-term current use of insulin ([facility]) (Primary Dx); Primary hypertension; Hyperparathyroidism ([facility]); Osteoarthritis of fingers of both hands; 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 ([facility]); Calcaneal spur, unspecified laterality; Tinea pedis of right foot 12/13/2024 Telephone [facility] MEDICINE [address] [place] [phone] Regine Linda MD Appointment Confirmation 12/13/2024 Travel 12/07/2024 Patient Outreach [facility] MEDICINE [address] [place] [phone] Regine Linda MD Pre-visit Planning (SDOH screening is negative and Tobacco screening is negative) from Last 3 Months Immunizations Name Administration Dates Next Due INFLUENZA VACCINE QUADRIVALE NT RECOMBINANT PRESERVATIVE FREE RIV4 08/05/2020,10/12/2019 Influenza High-dose Quadriva lent Preservative Free 06/16/2023,07/24/2022,08/06/2021 Influenza injectable quadriv alent IIV4 with preservative 07/03/2018 Influenza, High Dose Seasona l, Preservative Free 08/06/2024 Influenza, IIV3, injectable 10/20/2013, 2 Influenza, seasonal, injecta ble, preservative free 06/26/2016 Pfizer Covid-19 Vaccine 12+ 08/06/2024, 1,01/03/2021 Pneumococcal Conjugate PCV 13 11/29/2021 Pneumococcal Conjugate [...] 12/13/2024 10:23 AM EDT Plan of Treatment Upcoming Encounters Date Type Department Care Team (Late st Contact Info) Description 04/27/2025 11:15 AM EDT Office Visit [facility] MEDICINE [address] [place] [address] Regine Linda MD [address] [place] [address] Health Maintenance Due Date Last Done Comments CT Colonography 1955 FIT DNA/Cologuard 1955 FIT 1955 FOBT 1955 Sigmoidoscopy 1955 Alcohol/Substance Use Screening 1967 Hepatitis C Screening 1973 Colonoscopy 03/08/2024 03/08/2014 Colorectal Cancer Screening 03/08/2024 Diabetes: Urine Protein Screening 06/13/2024 06/13/2023, 02/27/2022 Lipid Panel 06/13/2024 06/13/2023, 02/27/2022 Diabetes: Hemoglobin A1C 02/13/2025 024, 04/13/2024, 04/23/2023, Additional history exists Depression Screening 04/13/2025 04/13/2024, 04/13/20 24 Tobacco Screening 08/16/2025 08/16/2024 SDOH Screening 12/07/2025 12/07/2024 Diabetes: Foot Exam 12/13/2025 12/13/2024, 12/13/2024, 12/13/2024, Additional history exists Mammogram 01/10/2026 01/10/2025, 0410/2023, 12/30/2022, Additional history exists Eye Exam 05/06/2026 05/06/2024, 0810/2023, 05/06/2024, Additional history exists RSV Patients and Patients Aged 60 years or older (1 - 1-dose 75+ series) 2030 DTaP/Tdap/Td Vaccines (2 - Td or Tdap) 11/29/2031 11/29/2021 Pneumococcal Vaccine: 50+ Years Completed 06/16/2023, 11/29/2021 Zoster Vaccines Completed 08/04/2023, 04/07, 11/02/2018 COVID-19 Vaccine Completed 08/06/2024, , 11/29/2021, [...] Procedure Name Priority Date/Time Associated Diagnosis Comments BI MAMMOGRAM SCREENING TOMOSYNTHESIS BILATERAL Routine 01/10/2025 1:00 PM EDT POCT GLUCOSE Routine 12/13/2024 10:37 AM EDT Type 2 diabetes mellitus without complication, without long-term current use of insulin ([facility]) POCT GLYCATED HEMOGLOBIN, TOTAL Routine 08/16/2024 11:24 AM EST Type 2 diabetes mellitus without complication, without long-term current use of insulin (CMS/HCC) ALBUMIN, RANDOM URINE W/CREATININE Routine 06/13/2023 10:08 AM EDT LIPID PANEL WITH REFLEX TO DIRECT LDL Routine 06/13/2023 10:00 AM EDT Primary hypertension Type 2 diabetes mellitus without complication, without long-term current use of insulin (CMS/HCC) HM COLONOSCOPY Routine 03/08/2014 3:15 PM EDT from Last 3 Months or Most Recently Relevant to Health Maintenance Results * BI Mammogram Screening Tomosynthesis Bilateral (01/10/2025 1:00 PM EDT) Anatomical Region Laterality Modality Breast Bilateral Mammography 01/10/2025 1:00 PM EDT Narrative 01/16/2025 8:01 PM EDT ? [facility] [place] ? [address] ?[place] [address] ?[phone] ? Mammography Report ? Signed ? Patient: Alegria,Ledy Zurita ?MR#: [id number] ?? [id number] ? : 1955 ?Acct:[id number] ? Age/Sex: 69 / F ?ADM Date: 01/10/25 ? Loc: HO.MAMMO ? Attending Dr: Regine Linda MD ? Ordering Physician: Regine Linda MD ?Results: 0In ?? complete: Needs Additional Imaging Evaluation ? Date of Service: 01/10/25 ?Follow Up: Additional Imagi ?? ng ? Procedure(s): MM tomosynthesis screening BI ?? Accession Number(s): [id number] ? cc: Regine Linda MD ? EXAMINATION: ?? MM SCREENING DIGITAL BREAST TOMOSYNTHESIS, BILATERAL ? CLINICAL INFORMATION: ? Screening. Asymptomatic. ? COMPARISON: ?? Mammography: Comparison is made with available priors ? TECHNIQUE: ?? Digital breast mammography with tomosynthesis is performed in both the ?? craniocaudal and mediolateral oblique views along with computer-aided ?? detection (CAD). ? FINDINGS: ?? There are scattered areas of fibroglandular density (ACR BI-RADS breast ?? composition Category b). ?? Left: ?? Asymmetry inferior breast posterior depth on MLO view localizing ?? superficially questionable wall. ?? No suspicious calcifications or other abnormal findings. ? Right: ?? There are no significant masses, abnormal calcifications, or other ?? abnormalities. ? MM/MM tomosynthesis screening BI ?? IMPRESSION: ?? Additional imaging is recommended ? ASSESSMENT: ? BI-RADS BI-RADS 0 - Incomplete: Needs additional Imaging. ? RECOMMENDATION: ?? 1. Additional views of the left breast. ?? 2. Targeted ultrasound if warranted after review of the additional ?? views. ?? 3. Radiology department staff will contact the patient for additional ?? imaging. ? Additional Imaging required ? This examination should not preclude the clinical evaluation of a ?? suspicious palpable abnormality. ? This patient's information was entered into a reminder system with a ?? target due date for their next mammogram. ? Electronically signed by: ??Liliana Bradley DO ??01/16/2025 07:58 PM EDT ?? RP ? Dictated By: ?Liliana Bradley DO ? Signed By: ?<Electronically signed by Liliana Bradley DO in OV> ? 01/16/258 ? DD/ 1300 ? TD/TT: 01/10/25 1322 ? Marble Setter Helper: ? Procedure Note Erik, Image - 01/16/2025 [facility] [address] [place] [address] Dr. [place], [place] [address] Mammography Report Signed Patient: Ledy Alegria LMR#: [id number] : 6Acct:[id number] Age/Sex: 69 / FADM Date: 01/10/25 Loc: HO.MAMMO Attending Dr: Regine Linda MD Ordering Physician: Regine Linda MDResults: 0In complete: Needs Additional Imaging Evaluation Date of Service: 01/10/25Follow Up: Additional Imagi ng Procedure(s): MM tomosynthesis screening BI Accession Number(s): [id number] cc: Regine Linda MD EXAMINATION: MM SCREENING DIGITAL BREAST TOMOSYNTHESIS, BILATERAL CLINICAL INFORMATION: Screening. Asymptomatic. COMPARISON: Mammography: Comparison is made with available priors TECHNIQUE: Digital breast mammography with tomosynthesis is performed in both the craniocaudal and mediolateral oblique views along with computer-aided detection (CAD). FINDINGS: There are scattered areas of fibroglandular density (ACR BI-RADS breast composition Category b). Left: Asymmetry inferior breast posterior depth on MLO view localizing superficially questionable wall. No suspicious calcifications or other abnormal findings. Right: There are no significant masses, abnormal calcifications, or other abnormalities. MM/MM tomosynthesis screening BI IMPRESSION: Additional imaging is recommended ASSESSMENT: BI-RADS BI-RADS 0 - Incomplete: Needs additional Imaging. RECOMMENDATION: 1. Additional views of the left breast. 2. Targeted ultrasound if warranted after review of the additional views. 3. Radiology department staff will contact the patient for additional imaging. Additional Imaging required This examination should not preclude the clinical evaluation of a suspicious palpable abnormality. This patient's information was entered into a reminder system with a target due date for their next mammogram. Electronically signed by: Liliana Bradley DO 01/16/2025 07:58 PM EDT Dictated By: Liliana Bradley DO Signed By: <Electronically signed by Liliana Bradley DO in OV> 01/16/251957 DD/ 1300 TD/TT: 01/10/25 1322 Marble Setter Helper: Regine Linda MD [facility] BI PROCEDURES Edited Result - Final * POCT Glucose (12/13/2024 10:37 AM EDT) Glucose Blood, POC 101 60 - 200 mg/dL QC Media Lot # [id number] Lot# Expiration Date 82,625 Blood Capillary blood specimen / Unknown 12/13/2024 10:37 AM EDT Regine Linda MD POINT OF CARE TEST ENTER /EDIT ORDERABLES Final Result * (ABNORMAL) POCT HGB A1C (08/16/2024 11:24 AM EST) Hemoglobin A1C 6.5(A) 4.0 - 6.0 % QC Media Lot # [id number] Lot# Expiration Date [id number] Blood 08/16/2024 11:2 4 AM EST Regine Linda MD POINT OF CARE TEST ENTER /EDIT ORDERABLES Final Result * Albumin, Random Urine W/Creatinine (06/13/2023 10:08 AM EDT) Creatinine, Urine 138.71 mg/dL [facility] Microalbumin Urine <5.0 mg/L [facility] Microalbum Creatinine Ratio Ur TNP <30 ug/mg cr [facility] Comment:Unable to calculate albumin/creatinine ratio due to lowmicroalbumin or creatinine result. 06/13/2023 10:0 8 AM EDT 06/13/2023 11:47 AM EDT Regine Linda MD LAB URINE ORDERABLES Fin al Result [facility] [address] [place] [phone] * (ABNORMAL) Lipid Panel with Reflex to Direct LDL (06/13/2023 10:00 AM EDT) Triglycerides 162(H) <150 mg/dL [facility] Comment:Desirable Triglyceri de: less than 150 mg/dLBorderline High Triglyceride 150-199 mg/dLHigh Triglyceride: 200-499 mg/dLVery High Triglyceride: greater than or equal to 5OO mg/dL Cholesterol 146 <200 mg/dL [facility] Comment:Desirable Cholestero l: less than 200 mg/dLBorderline High Cholesterol: 200-239 mg/dLHigh Cholesterol: greater than 239 mg/dL LDL Cholesterol Calculated 76 <100 mg/dL [facility] Comment:Desirable LDL: less than 100 mg/dLNear Optimal/Above Optimal LDL: 110- 129 mg/dLBorderline High LDL: 130-159 mg/dLHigh LDL: 160-189 mg/dLVery High LDL: greater than or equal to 190 mg/dL HDL Cholesterol 38(L) >40 mg/dL [facility] Comment:Desirable HDL: great er than 40 mg/dL Note: This HDL assay may give artificially low results in patients with liver disease. Blood 06/13/2023 10:0 0 AM EDT 06/13/2023 11:12 AM EDT Regine Linda MD LAB BLOOD ORDERABLES Fin al Result [facility] [address] [place] [phone] * Hm Colonoscopy (03/08/2014 3:15 PM EDT) Colonoscopy Normal Normal Narrative Ami Benavides - 03/08/2014 3:15 PM EDT Recommended 10 year follow up Historical Provider HEALTH MAINTENANCE Edited Result - Final from Last 3 Months or Most Recently Relevant to Health Maintenance Insurance [facility] [employer] Care Teams Barrel Bung Remover And Dumper Relationship Specialty Start Date End Date Regine Linda MD [address] [place] [phone] PCP - General Family Medicine 10/06/18
--- OUTSIDE RECORDS SUMMARY | 2025-02-15 12:35 | XMS_ITS | Encounter Summary ---
Author Organization [employer] [facility] Address [address]t [place] [address] Care Team Providers Care Materials And Corrosion Engineer Name Role Phone Regine Linda MD Primary Care Provider + Reason for Visit * Reason Onset Date Comments Med Refill 05/20/2023 Encounter Details Date Type Department Care Team (Late st Contact Info) Description 05/20/2023 Refill [facility] MEDICINE [address] [place], [place] [phone] Regine Linda MD [address] [place], [place] [phone] Primary hypertension Social History Tobacco Use Types [...] as of this encounter Plan of Treatment Upcoming Encounters Date Type Department Care Team (Late st Contact Info) Description 04/27/2025 11:15 AM EDT Office Visit [facility] MEDICINE [address] [place], [place] [phone] Regine Linda MD [address] [place], [place] [phone] documented as of this encounter Visit Diagnoses Diagnosis Primary hypertension Unspecified essential hypertension documented in this encounter Care Teams Materials And Corrosion Engineer Relationship Specialty Start Date End Date Regine Linda MD [address] [place] [phone] PCP - General Family Medicine 10/06/18 documented as of this encounter
--- OUTSIDE RECORDS SUMMARY | 2025-02-15 12:35 | XMS_ITS | Encounter Summary ---
Author Organization [facility] Address [address] [facility] [address] [place] [address] Care Team Providers Care Interpretive Naturalist Name Role Phone Regine Linda MD Primary Care Provider + Encounter Details Date Type Department Care Team (Late st Contact Info) Description 03/25/2023 Abstract [facility] MEDICINE [address] [place] [address] [phone] Regine Linda MD [address] [place] [address] [phone] Social History Tobacco Use Types Packs/Day Years [...] Description 04/27/2025 11:15 AM EDT Office Visit [facility] [address] [place] [address] [phone] Regine Linda MD [address] [place] [phone] documented as of this encounter Procedures Procedure Name Priority Date/Time Associated Diagnosis Comments HM COLONOSCOPY Routine 03/08/2014 3:15 PM EDT documented in this encounter Results * Hm Colonoscopy (03/08/2014 3:15 PM EDT) Colonoscopy Normal Normal Narrative Ami Benavides - 03/08/2014 3:15 PM EDT Recommended 10 year follow up Historical Provider [facility] Edited Result - Final documented in this encounter Visit Diagnoses Not on filedocumented in this encounter Care Teams Interpretive Naturalist Relationship Specialty Start Date End Date Regine Linda MD [address] [place] [phone] PCP - General Family Medicine 10/06/18 documented as of this encounter
== END 2025-02-15 11:05 | disposition home or self-care (01) ==
LOC: HO.MAMMO 11:04
PROVIDERS: PCP Internal Medicine; Visit Provider Internal Medicine
DX: N64.89 Other specified disorders of breast (principal)
CPT/HCPCS: 76642; 77061; 77065

== ENCOUNTER 2025-03-07 12:43 | Outpatient (AMB) | payer MEDICARE, SELFPAY ==
--- NOTE | 2025-03-07 12:45 | A.OFFVIS_ITS ---
Vital Signs 03/07/25 12:57 Height 5 ft 6 in Weight 178 lb 9.191 oz BMI 28.8 BP 114/68 Blood Pressure Location Lt brachial Position Sitting Pulse 88 Pulse Source Pulse Oximeter Pulse Oximetry (%) 97 Oxygen Delivery Method Room Air Intake Visit Reasons: f/u hyperparathyroidism Intake Note: Patient present today for hyperparathyroidism office visit. Subsurface Augmentee Elint Operator Required: Yes Subsurface Augmentee Elint Operator Language: Unit Aide Tech Services: Subsurface Augmentee Elint Operator Present Subsurface Augmentee Elint Operator Name: Elieser [id number] Information Interpreted: non-clinical & clinical Accompanied by: Self / Same As Patient Allergies No Known Allergies Allergy (Verified 03/07/25 12:59) Medication List - Last Reconciled 03/07/25 by Glenis Shipley MD blood sugar diagnostic ([email or web address] Verio test strips) As directed blood-glucose meter ([employer] Verio Flex Meter) As directed calcium carbonate-vitamin D3 600 mg-25 mcg (1,000 unit) caps PO clotrimazole 1% appl topical estradiol 0.01%(0.1mg/gram) 1 g vaginal 2XW lancets ([employer] Delica Plus Lancet) As directed loratadine 10 mg PO QAM losartan 50 mg PO DAILY lovastatin 20 mg PO QPM metformin ER 500 mg PO QPM HPI Comments Details: 69 YO F with who is seen for follow up of recurrent hyperparathyroidism. Status post parathyroid surgery 08/04/[address] Eleazar Aguirre at [facility]. Now following for recurrent hyperparathyroidism and osteoporosis. Past medical history significant for hypertension, hyperlipidemia. She was previously following with Dr. Navarro, last seen November 2023. HPI Diagnosis of primary hyperparathyroidism in 2011, preoperative parathyroid imaging revealed solitary left superior parathyroid adenoma status post minimal ly invasive parathyroidectomy on 08/04/2012 with removal offs left superior parathyroid adenoma, intraoperative PTH declined from 174-36, grossly normal left inferior parathyroid was visualized and preserved, right-sided parathyroids were not explored. Pathology of the left superior parathyroid confirmed hypercellular parathyroid tissue. Early postoperative lab results revealed normal calcium and PTH. Sometime in 2022 she was following with her PP CP and was found to have elevated PTH levels. From available records 10/29/2022 calcium 9.8, PTH 114, vitamin-D 55, 24 hour urine calcium 149. Labs 02/27/2022: PTH 99, creatinine 1.08, calcium 9.7. No hydrochlorothiazide or lithium use. No history of kidney stones No fractures DEXA scan in December 2021 showed osteoporosis with T-score of-2.8 in the left femur. Given elevated PTH level with osteoporosis, patient was referred to Dr. Eleazar Aguirre for surgical evaluation and had a consultation in June 2023. Denies any personal of head or neck radiation, family history of , thyroid cancers or endocrine tumors. Sister: parathyroid surgery Father: osteoporosis? Currently using Calcium supplement 600 mg BID ? Vitamin D: thinks there might be some vitamin D ? Per patient she was evaluated by Dr. Johnnie Leone in [place] at [facility] , sounded like she underwent sestemambi and US of the parathyroid with them and was decided no surgery needed. Osteoporosis risk factors No history of fractures No prior treatment Menopausal natural at age 52, regular periods , normal menarche. Never smoker thinks father had osteoporosis No parents fractured hip No steroid No seizure meds No thyroid disorders No heparin use No PPI use no chronic inflammatory lung or bowel disease. Upto date with dental cleaning every 6 months, no issues. Physical exam General: sitting comfortably in no acute distress HEENT: normocephalic/atraumatic Neck: supple Cardiac: normal heart sounds Pulm: normal breath sounds B/L, no added breath sounds Abd: not distended, no tenderness Extremities: no edema, no signs of myxedema Neuro: AAO x3, Speech: normal, no facial droop, moving all 4 extremities Laboratory Tests 10/29/18 10/29/22 11/11/22 08:28 13:22 Unknown Creatinine 0.98 Est GFR (Non-Af Amer) 58 25-OH Vitamin D Total 40.9 55.2 TSH 3rd Generation 2.01 PTH Intact 67 H 114 H Calcium (PTH Intact) 9.8 Ur 24 Hour Volume 2225 Ur Creatinine mg/dL 71.33 Ur Creatinine 24 Hour 1.6 Ur Calcium 24 Hr 149 Calcium/Creat 24 Hr 97 BONE DENSITOMETRY 12/28/21 CLINICAL INDICATION: Encounter for screening for osteoporosis. Postmenopausal. COMPARISON: This is the patient's baseline examination. TECHNIQUE: Using a Cartesian DXA System (software version: 13.1) manufactured by [employer], dual-energy x-ray absorptiometry was performed of the lumbar spine and left hip. The images are of good technical quality. Summary results are attached. FINDINGS: AP SPINE L1-L4: BMD 1.271 g/cm2, Z-score 1.6, T-score 0.8, normal. LEFT FEMUR, NECK: BMD 0.725 g/cm2, Z-score -1.3, T-score -2.3, osteopenia. LEFT FEMUR, TOTAL: BMD 0.649 g/cm2, Z-score -2.2, T-score -2.8, osteoporosis. IDENTIFIED RISK FACTORS: Menopause. Height loss. HISTORY OF FRACTURE: None listed. MEDICATIONS: Vitamin D. MM/XR DEXA axial skeleton IMPRESSION: 1. DIAGNOSIS: Osteoporosis based on the lowest T-score value of -2.8 in the total femur applying World Health Organization criteria. 2. 10-YEAR FRACTURE RISK PREDICTION, FRAX: Major osteoporotic fracture (clinical spine, forearm, hip or shoulder) 6.3%. Hip fracture 1.1%. [facility] Medical History (Updated 03/07/25 @ 13:21 by Glenis Shipley MD) Osteoporosis Elevated parathyroid hormone Surgical History History of delivery Hx of partial thyroidectomy Family History Mother High blood pressure Prediabetes Father High blood pressure Social History Household Members: Spouse and Children Household Members Other:: , daughter Alcohol intake: never Patient Tobacco Use Status: Never used Tobacco Assessment & Plan Assessment & Plan (1) Elevated parathyroid hormone: Code(s): E34.9 - Endocrine disorder, unspecified Category: Medical Plan: 69-year-old female with a history of primary hyperparathyroidism diagnosed in 2011 status post minimally invasive left superior parathyroid adenoma resection with decline of PTH from 174-36, who was found to have recurrent elevated PTH levels sometime in 2022, with a osteoporosis of the hip with a T-score of -2.8 at the total left femur, with normal calcium levels and was referred again to surgery for surgical evaluation. She saw Dr. Eleazar Aguirre at [facility] initially in June 2023 and plan was for exploration for recurrent hyperparathyroidism, however then she was traveling for a bit and then later she was referred [facility] and saw Dr. Johnnie Leone in summer/fall 2023, we do not have these records but per patient imaging was done and she was told for conservative management with follow up of labs,. We will obtain these records. At this time there are no recent labs. I will repeat blood work as well as a 24 hour urine evaluation. She is unsure how much she is taking calcium in her supplements in she is not sure if she is on any vitamin-D supplementation. Last DEXA scan in December 2021 showed osteoporosis of the left femoral total with T-score of-2.8. If surgical management is not pursued for recurrent hyperparathyroidism, I will consider talking to her about therapy for osteoporosis of the next visit. I will also obtain bone resorption markers now. Unclear whether she is on any vitamin-D supplementation, she thinks she is on calcium supplementation, unsure of the dose, I have asked her to bring her bottles to next visit for us to confirm the doses Plan: -obtain records from [facility] -ordered blood work and 24 hour urine calcium and creatinine low evaluation -ordered bone density scan including the forearm -follow up in 8 weeks to discuss results (2) Osteoporosis: Code(s): M81.0 - Age-related osteoporosis without current pathological fracture Category: Medical Qualifiers: Osteoporosis type: age-related Presence of current pathological fracture: without current pathological fracture Qualified Code(s): M81.0 - Age- related osteoporosis without current pathological fracture Plan: See above Plan I spent 30 minutes in reviewing the record, seeing the patient and documenting in the medical record. Orders: Orders Calcium Today E34.9 - Endocrine disorder, unspecified, M81.0 - Age-related osteoporosis without current pathological fracture Creatinine, 24 Hr Group Today E34.9 - Endocrine disorder, unspecified, M81.0 - Age-related osteoporosis without current pathological fracture Phosphorus Today E34.9 - Endocrine disorder, unspecified, M81.0 - Age-related osteoporosis without current pathological fracture Vitamin D 25-OH Total Today E34.9 - Endocrine disorder, unspecified, M81.0 - Age-related osteoporosis without current pathological fracture Collagen Type I C-Telopeptide Today E34.9 - Endocrine disorder, unspecified, M81.0 - Age-related osteoporosis without current pathological fracture Alkaline Phosphatase Bone Today E34.9 - Endocrine disorder, unspecified, M81.0 - Age-related osteoporosis without current pathological fracture Creatinine Today E34.9 - Endocrine disorder, unspecified, M81.0 - Age-related osteoporosis without current pathological fracture XR DEXA appendicular skeleton Today E34.9 - Endocrine disorder, unspecified, M81.0 - Age-related osteoporosis without current pathological fracture Albumin Level Today E34.9 - Endocrine disorder, unspecified, M81.0 - Age- related osteoporosis without current pathological fracture Calcium, Ionized Today E34.9 - Endocrine disorder, unspecified, M81.0 - Age- related osteoporosis without current pathological fracture Calcium, 24 Hr Ur Today E34.9 - Endocrine disorder, unspecified, M81.0 - Age- related osteoporosis without current pathological fracture Parathyroid Hormone Intact Today E34.9 - Endocrine disorder, unspecified, M81.0 - Age-related osteoporosis without current pathological fracture Patient Instructions: Do 24 hour urine collection and same day as you hand in the urine do fasting morning blood work 24 hr urine collection instructions You have been asked to collect your urine for 24 hours to assess for calcium excretion. You must choose a 24 hour period of time when you will be home. The morning of the first day, DISCARD the FIRST morning void and then note the time. You will collect every single void from then on for 24 hours. For example, if you wake up at 6am and urinate, flush down that void. You will then collect every drop of urine all day and all night through 6am the following day. You will urinate one last time at 6am for the collection. The jug of urine must be kept in the refrigerator until you bring it to the lab. Do bone density scan someone will call you to schedule this Bring calcium vitamin D bottles to next visit Realice george recolecci?n de orina de 24 horas y, el mismo d?a que la entregue, h?gase un an?lisis de chuck matutino en ayunas. Instrucciones para la recolecci?n de orina de 24 horas Se le corona solicitado que recolecte orina raquel 24 horas para evaluar la excreci?n de calcio. Debe elegir un per?odo de 24 horas en el que estar? en casa. La ma?isi del primer d?a, DESECHE la PRIMERA micci?n de la ma?isi y anote la hora. Recolectar? cada micci?n a partir de entonces raquel 24 horas. Por ejemplo, si se despierta a las 6 a. m. y orina, tire de la zuñiga. Recolectar? cada gota de orina raquel todo el d?a y toda la noche hasta las 6 a. m. del d?a siguiente. Orinar? por ?ltima vez a las 6 a. m. para la recolecci?n. El recipiente con la orina debe conservarse en el refrigerador hasta que lo lleve al laboratorio. Realice george densitometr?a ?sea; alguien le llamar? para programarla. Traiga frascos de calcio y vitamina D a la pr?xima visita. Coding Level of Care Code Est Pt Level 4 (09368) Diagnoses Elevated parathyroid hormone E34.9 Age-related osteoporosis without current pathological fracture M81.0 Osteoporosis type: age-related Presence of current pathological fracture: without current pathological fracture Time Spent (min) 30
[2025-03-07 12:57] VITALS: BP 114/68; PULSE 88; O2SAT 97; BMI 28.8
--- OUTSIDE RECORDS SUMMARY | 2025-03-07 13:41 | XMS_ITS | Clinical Summary ---
Author Organization [employer] Address [address] [place] [address] Care Team Providers Care Work Order Clerk Name Role Phone Regine Linda MD Primary Care Provider + Allergies No known active allergies Medications Blood Glucose Monitoring Suppl (kwiryuch Verio Flex System) w/Device kitIndications:Ty pe 2 diabetes mellitus without complication, without long-term current use of insulin ([facility]) TEST BLOOD SUGAR TWICE DAILY 1 kit 3 Active fluticasone (Flonase) 50 MCG/ACT nasal spray Administer 1 spray into each nostril Once per day. 16 g 2 4 Active losartan-hydroCHL OROthiazide (Hyzaar) 100-12.5 MG tabletIndications :Primary hypertension Take 1 tablet by mouth Once per day. 90 tablet 3 4 08/16/20 25 Active calcium carbonate 1500 (600 Ca) MG tabletIndications :Hyperparathyroid ism ([facility]) take 1 tablet once a day PO 90 tablet 3 4 Active estradiol (Estrace) 0.1 MG/GM vaginal cream 1g vaginally twice weekly as needed 85 g 1 4 Active SITagliptin (Januvia) 100 MG tabletIndications :Type 2 diabetes mellitus without complication, without long-term current use of insulin ([facility]) Take 1 tablet (100 mg) by mouth [...] Plan (08/17/2024 6:30 PM EST): Seen by [facility] ENT team and no surgical correction needed. 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 Continue [...] Encounters Date Type Department Care Team Description 03/07/2025 Refill [facility] [address] [place] [address] Regine Linda MD 02/15/2025 Orders Only [facility] [address] [place] [phone] Regine Linda MD 01/20/2025 Telephone [facility] [place] [address] Regine Linda MD April recall 01/10/2025 Orders Only [address] [address] Regine Linda MD 12/13/2024 10:30 AM EDT Office Visit [address] [address] Regine Linda MD Type 2 diabetes mellitus without complication, without long-term current use of insulin ([facility]) (Primary Dx); Primary hypertension; Hyperparathyroidism (CMS/HCC); Osteoarthritis of fingers of both hands; 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 (CMS/HCC); Calcaneal spur, unspecified laterality; Tinea pedis of right foot 12/13/[address] [address] Regine Linda MD Appointment Confirmation 12/13/2024 Travel 12/07/2024 Patient Outreach [address] [address] Regine Linda MD Pre-visit Planning (SDOH screening is negative and Tobacco screening is negative) from Last 3 Months Immunizations Immunization Administration Dates Next Due INFLUENZA VACCINE QUADRIVALE [...] Description 04/27/2025 11:15 AM EDT Office Visit [facility] [address], [place] [phone] Regine Linda MD [address] [place], [place] [phone] Health Maintenance Due Date Last Done Comments CT Colonography 1955 FIT DNA/Cologuard 1955 FIT 1955 FOBT 1955 Sigmoidoscopy 1955 Alcohol/Substance Use Screening 1967 Hepatitis C Screening 1973 Colonoscopy 03/08/2024 03/08/2014 Colorectal Cancer Screening 03/08/2024 Diabetes: Urine Protein Screening 06/13/2024 06/13/2023, 02/27/2022 Lipid Panel 06/13/2024 06/13/2023, 02/27/2022 COVID-19 Vaccine ( season) 2025 08/06/2024, 08/05/2022, 11/29/2021, Additional history exists Diabetes: Hemoglobin A1C 02/13/2025 024, 04/13/2024, 04/23/2023, Additional history exists Depression Screening 04/13/2025 04/13/2024, 04/13/20 24 Tobacco Screening 08/16/2025 08/16/2024 SDOH Screening 12/07/2025 12/07/2024 Diabetes: Foot Exam 12/13/2025 12/13/2024, 12/13/2024, 12/13/2024, Additional history exists Mammogram 02/15/2026 02/15/2025, 0 04/2025, 01/05/2024, Additional history exists Eye Exam 05/06/2026 05/06/2024, 0810/2023, 05/06/2024, Additional history exists RSV Patients and Patients Aged 60 years or older (1 - 1-dose 75+ series) 2030 DTaP/Tdap/Td Vaccines (2 - Td or Tdap) 11/29/2031 11/29/2021 Pneumococcal Vaccine: 50+ Years Completed 06/16/2023, 11/29/2021 Zoster Vaccines Completed 08/04/2023, 04/07, 11/02/2018 Influenza Vaccine Completed 08/06/2024, , 07/24/2022, Additional [...] patient's age to complete this topic Meningococcal B Vaccine Aged Out No l onger eligible based on patient's age to complete [...] Name Priority Date/Time Associated Diagnosis Comments BI US BREAST LIMITED LEFT Routine 02/15/2025 11:30 AM EDT BI MAMMOGRAM DIAGNOSTIC TOMOSYNTHESIS ADDED VIEW LEFT Routine 02/15/2025 11:10 AM EDT BI MAMMOGRAM SCREENING TOMOSYNTHESIS BILATERAL Routine 01/10/2025 1:00 PM EDT POCT GLUCOSE Routine 12/13/2024 10:37 AM EDT Type 2 diabetes mellitus without complication, without long-term current use of insulin (CMS/HCC) POCT GLYCATED HEMOGLOBIN, TOTAL Routine 08/16/2024 11:24 [...] Relevant to Health Maintenance Results * BI US Breast Limited Left (02/15/2025 11:30 AM EDT) Anatomical Region Laterality Modality Breast Left Ultrasound 02/15/2025 11:3 0 AM EDT Narrative 02/15/2025 12:51 PM EDT ? [facility] ? [address] ?[place] [address] ? Ultrasound Report ? Signed ? Patient: Ledy Alegria ?MR#: [id number] ?? 470 ? : 1955 ?Acct:[id number] ? Age/Sex: 69 / F ?ADM Date: 02/15/25 ? Loc: HO.MAMMO ? Attending Dr: Regine Linda MD ? Ordering Physician: Regine Linda MD ?? Date of Service: 02/15/25 ?? Procedure(s): US breast LT limited mamm only ?? Accession Number(s): [id number] ? cc: Regine Linda MD ? EXAMINATION: ?? MM DIAGNOSTIC DIGITAL BREAST TOMOSYNTHESIS, LEFT ?? Limited left breast ultrasound. ? CLINICAL INFORMATION: ? Call back from screening for asymmetry in the inferior left breast on ?? MLO view. ? COMPARISON: ?? Mammography: [facility] on PACS. ? TECHNIQUE: ?? Digital breast tomosynthesis is performed in both the craniocaudal and ?? mediolateral oblique views along with computer-aided detection (CAD). ?? Synthesized 2D images are generated from the tomosynthesis. ? FINDINGS: ?? There are scattered areas of fibroglandular density (ACR BI-RADS breast ?? composition Category b). ?? Previously seen asymmetry in the inferior left breast on MLO view does ?? not persist on additional imaging projections and likely represented ?? overlapping breast tissue. ?? There are no significant masses, abnormal calcifications, or other ?? abnormalities. ? Targeted color Doppler ultrasound scanning in the left breast from 2-6 ?? o'clock demonstrates normal fibronodular breast tissue. There is no ?? sonographic abnormality. ? US/US breast LT limited mamm only ?? IMPRESSION: ?? Left: Negative. ? ASSESSMENT: ? BI-RADS BI-RADS 1 - Negative ? RECOMMENDATION: ?? 1 year F/U ? Results were provided to the patient at time of visit by the ?? technologist. ? This patient's information was entered into a reminder system with a ?? target due date for their next mammogram. ? Electronically signed by: ??Liliana Bradley DO ??02/15/2025 12:48 PM EDT ? Dictated By: ?Liliana Bradley DO ? Signed By: ?<Electronically signed by Liliana Bradley, DO in OV> ? 02/15/25 1248 ? DD/ 1130 ? TD/TT: 02/15/25 1152 ? Photocopying Equipment Repairer: ? Procedure Note Melater, Image - 02/15/2025 [facility] [address] [place] [address] Dr. [place], [place] [address] Ultrasound Report Signed Patient: Ledy Alegria R#: [id number] 470 : 6Acct:[id number] Age/Sex: 69 / FADM Date: 02/15/25 Loc: HO.MAMMO Attending Dr: Regine Linda MD Ordering Physician: Regine Linda MD Date of Service: 02/15/25 Procedure(s): US breast LT limited mamm only Accession Number(s): [id number] cc: Regine Linda MD EXAMINATION: MM DIAGNOSTIC DIGITAL BREAST TOMOSYNTHESIS, LEFT Limited left breast ultrasound. CLINICAL INFORMATION: Call back from screening for asymmetry in the inferior left breast on MLO view. COMPARISON: Mammography: [facility] on PACS. TECHNIQUE: Digital breast tomosynthesis is performed in both the craniocaudal and mediolateral oblique views along with computer-aided detection (CAD). Synthesized 2D images are generated from the tomosynthesis. FINDINGS: There are scattered areas of fibroglandular density (ACR BI-RADS breast composition Category b). Previously seen asymmetry in the inferior left breast on MLO view does not persist on additional imaging projections and likely represented overlapping breast tissue. There are no significant masses, abnormal calcifications, or other abnormalities. Targeted color Doppler ultrasound scanning in the left breast from 2-6 o'clock demonstrates normal fibronodular breast tissue. There is no sonographic abnormality. US/US breast LT limited mamm only IMPRESSION: Left: Negative. ASSESSMENT: BI-RADS BI-RADS 1 - Negative RECOMMENDATION: 1 year F/U Results were provided to the patient at time of visit by the technologist. This patient's information was entered into a reminder system with a target due date for their next mammogram. Electronically signed by: Liliana Bradley DO 02/15/2025 12:48 PM EDT Dictated By: Liliana Bradley DO Signed By: <Electronically signed by Liliana Bradely DO in OV> 02/15/25 1248 DD/ 1130 TD/TT: 02/15/25 1152 Photocopying Equipment Repairer: Regine Linda MD IMG US PROCEDURES Final Result * BI Mammogram Diagnostic Tomosynthesis added left (02/15/2025 11:10 AM EDT) Anatomical Region Laterality Modality Breast Left Mammography 02/15/2025 11:1 0 AM EDT Narrative 02/15/2025 12:51 PM EDT ? [facility] [place] [facility] ? [address] ?[place] [address] ?[phone] ? Mammography Report ? Signed ? Patient: Alegria,Ann ?MR#: [id number] ?? 470 ? : 1955 ?Acct:[id number] ? Age/Sex: 69 / F ?ADM Date: 02/15/25 ? Loc: HO.MAMMO ? Attending Dr: Regine Linda MD ? Ordering Physician: Regine Linda MD ?Results: 1Ne ?? gative ? Date of Service: 02/15/25 ?Follow Up: 1 Year From Orig ?? inal Mammogram ? Procedure(s): MM tomosynthesis added views L ?? Accession Number(s): [id number] ? cc: Regine Linda MD ? EXAMINATION: ?? MM DIAGNOSTIC DIGITAL BREAST TOMOSYNTHESIS, LEFT ?? Limited left breast ultrasound. ? CLINICAL INFORMATION: ? Call back from screening for asymmetry in the inferior left breast on ?? MLO view. ? COMPARISON: ?? Mammography: [facility] on PACS. ? TECHNIQUE: ?? Digital breast tomosynthesis is performed in both the craniocaudal and ?? mediolateral oblique views along with computer-aided detection (CAD). ?? Synthesized 2D images are generated from the tomosynthesis. ? FINDINGS: ?? There are scattered areas of fibroglandular density (ACR BI-RADS breast ?? composition Category b). ?? Previously seen asymmetry in the inferior left breast on MLO view does ?? not persist on additional imaging projections and likely represented ?? overlapping breast tissue. ?? There are no significant masses, abnormal calcifications, or other ?? abnormalities. ? Targeted color Doppler ultrasound scanning in the left breast from 2-6 ?? o'clock demonstrates normal fibronodular breast tissue. There is no ?? sonographic abnormality. ? MM/MM tomosynthesis added views L ?? IMPRESSION: ?? Left: Negative. ? ASSESSMENT: ? BI-RADS BI-RADS 1 - Negative ? RECOMMENDATION: ?? 1 year F/U ? Results were provided to the patient at time of visit by the ?? technologist. ? This patient's information was entered into a reminder system with a ?? target due date for their next mammogram. ? Electronically signed by: ??Liliana Bradley DO ??02/15/2025 12:48 PM EDT ? Dictated By: ?Liliana Bradley DO ? Signed By: ?<Electronically signed by Liliana Bradley, DO in OV> ? 02/15/25 1248 ? DD/ 1110 ? TD/TT: 02/15/25 1129 ? Photocopying Equipment Repairer: ? Procedure Note Josh Valencia - 02/15/2025 [facility] [address] [place] [address] Mammography Report Signed Patient: Ledy Alegria LMR#: [id number] 470 : 6Acct:[id number] Age/Sex: 69 / FADM Date: 02/15/25 Loc: HO.MAMMO Attending Dr: Regine Linda MD Ordering Physician: Regine Linda MDResults: 1Ne gative Date of Service: 02/15/25Follow Up: 1 Year From Orig inal Mammogram Procedure(s): MM tomosynthesis added views L Accession Number(s): [id number] cc: Regine Linda MD EXAMINATION: MM DIAGNOSTIC DIGITAL BREAST TOMOSYNTHESIS, LEFT Limited left breast ultrasound. CLINICAL INFORMATION: Call back from screening for asymmetry in the inferior left breast on MLO view. COMPARISON: Mammography: [facility] on PACS. TECHNIQUE: Digital breast tomosynthesis is performed in both the craniocaudal and mediolateral oblique views along with computer-aided detection (CAD). Synthesized 2D images are generated from the tomosynthesis. FINDINGS: There are scattered areas of fibroglandular density (ACR BI-RADS breast composition Category b). Previously seen asymmetry in the inferior left breast on MLO view does not persist on additional imaging projections and likely represented overlapping breast tissue. There are no significant masses, abnormal calcifications, or other abnormalities. Targeted color Doppler ultrasound scanning in the left breast from 2-6 o'clock demonstrates normal fibronodular breast tissue. There is no sonographic abnormality. MM/MM tomosynthesis added views L IMPRESSION: Left: Negative. ASSESSMENT: BI-RADS BI-RADS 1 - Negative RECOMMENDATION: 1 year F/U Results were provided to the patient at time of visit by the technologist. This patient's information was entered into a reminder system with a target due date for their next mammogram. Electronically signed by: Liliana Bradley DO 02/15/2025 12:48 PM EDT RP Dictated By: Liliana Bradley DO Signed By: <Electronically signed by Liliana Bradley DO in OV> 02/15/25 1248 DD/ 1110 TD/TT: 02/15/25 1129 Photocopying Equipment Repairer: Regine Linda MD IMG BI PROCEDURES Final Result * BI Mammogram Screening Tomosynthesis Bilateral (01/10/2025 1:00 PM EDT) Anatomical Region Laterality Modality Breast Bilateral Mammography 01/10/2025 1:00 PM EDT Narrative 01/16/2025 8:01 PM EDT ? [facility] ? [address] ?[place] [address] ?[phone] ? Mammography Report ? Signed ? Patient: Alegria,Ann ?MR#: [id number] ?? 470 ? : 1955 ?Acct:[id number] ? Age/Sex: 69 / F ?ADM Date: 04/07/25 ? Loc: HO.MAMMO ? Attending Dr: Regine Linda MD ? Ordering Physician: Regine Linda MD ?Results: 0In ?? complete: Needs Additional Imaging Evaluation ? Date of Service: 01/10/25 ?Follow Up: Additional Imagi ?? ng ? Procedure(s): MM tomosynthesis screening BI ?? Accession Number(s): [id number] ? cc: Regine Linda MD ? EXAMINATION: [...] ??Liliana Bradley DO ??01/16/2025 07:58 PM EDT ? Dictated By: ?Liliana Bradley DO ? Signed By: ?<Electronically signed by Liliana Bradley, DO in OV> ? 01/16/251957 ? DD/ 1300 ? TD/TT: 01/10/25 1322 ? Photocopying Equipment Repairer: ? Procedure Note Erik, Image - 01/16/2025 [facility] [address] [place] [address] Mammography Report Signed Patient: Ledy Alegria LMR#: [id number] 470 : 1955cct:[id number] Age/Sex: 69 / FADM Date: 01/10/25 Loc: HO.MAMMO Attending Dr: Regine Linda MD Ordering Physician: Regine Lindaesults: 0In complete: Needs Additional Imaging Evaluation Date of Service: 01/10/25Follow Up: Additional Imagi ng Procedure(s): MM tomosynthesis screening BI Accession Number(s): [id number] cc: Regine Linda MD EXAMINATION: MM SCREENING [...] signed by Liliana Bradley DO in OV> 01/16/25 195 DD/ 1300 TD/TT: 01/10/25 1322 Photocopying Equipment Repairer: Regine Linda MD IMG BI PROCEDURES Edited Result - Final * POCT Glucose (12/13/2024 10:37 AM EDT) Glucose Blood, POC 101 60 - 200 mg/dL QC Media Lot # [id number] Lot# Expiration Date 82,625 Blood Capillary blood specimen / Unknown 12/13/2024 10:37 AM EDT Result [facility] Regine Linda MD POINT OF CARE TEST ENTER /EDIT ORDERABLES Final Result * (ABNORMAL) POCT HGB A1C (08/16/2024 11:24 AM EST) Hemoglobin A1C 6.5(A) 4.0 - 6.0 % QC Media Lot # [id number] Lot# Expiration Date [id number] Blood 08/16/2024 11:2 4 AM EST Regine Linda MD POINT OF CARE TEST ENTER /EDIT ORDERABLES Final Result * Albumin, Random Urine W/Creatinine (06/13/2023 10:08 AM EDT) Creatinine, Urine 138.71 mg/dL [facility] Microalbumin Urine <5.0 mg/L H [facility] Microalbum Creatinine Ratio Ur TNP <30 ug/mg cr [facility] Comment:Unable to calculate albumin/creatinine ratio due to lowmicroalbumin or creatinine result. 06/13/2023 10:0 8 AM EDT 06/13/2023 11:47 AM EDT us Regine Linda MD LAB URINE ORDERABLES Fin al Result [facility] [address] [place] [address] [phone] * (ABNORMAL) Lipid Panel with Reflex to Direct LDL (06/13/2023 10:00 AM EDT) Triglycerides 162(H) <150 mg/dL [facility] Comment:Desirable Triglyceri de: less than 150 mg/dLBorderline High Triglyceride 150-199 mg/dLHigh Triglyceride: 200-499 mg/dLVery High Triglyceride: greater than or equal to 5OO mg/dL Cholesterol 146 <200 mg/dL [facility] Comment:Desirable Cholestero l: less than 200 mg/dLBorderline High Cholesterol: 200-239 mg/dLHigh Cholesterol: greater than 239 mg/dL LDL Cholesterol Calculated 76 <100 mg/dL [facility] Comment:Desirable LDL: less than 100 mg/dLNear Optimal/Above Optimal LDL: 110- 129 mg/dLBorderline High LDL: 130-159 mg/dLHigh LDL: 160-189 mg/dLVery High LDL: greater than or equal to 190 mg/dL HDL Cholesterol 38(L) >40 mg/dL [facility] Comment:Desirable HDL: great er than 40 mg/dL Note: This HDL assay may give artificially low results in patients with liver disease. Blood 06/13/2023 10:0 0 AM EDT 06/13/2023 11:12 AM EDT Regine Linda MD LAB BLOOD ORDERABLES Fin al Result [facility] [address] [place] [address] [phone] * Hm Colonoscopy (03/08/2014 3:15 PM EDT) Colonoscopy Normal Normal Narrative Ami Benavides - 03/08/2014 3:15 PM EDT Recommended 10 year follow up Historical Provider HEALTH MAINTENANCE Edited Result - Final from Last 3 Months or Most Recently Relevant to Health Maintenance Insurance [employer]PLE[employer] [facility] STAND[facility] Care Teams Work Order Clerk Relationship Specialty Start Date End Date Regine Linda MD [address] [place] [id number] PCP - General Family Medicine 10/06/18
== END 2025-03-07 13:30 | disposition home or self-care (01) ==
LOC: HO.ENCR 12:44
PROVIDERS: PCP Internal Medicine; Visit Provider Student in an Organized Health Care Education/Training Program
DX: E34.9 Endocrine disorder, unspecified (principal); M81.0 Age-related osteoporosis without current pathological fracture
CPT/HCPCS: 99214

== ENCOUNTER → 2025-03-07 12:43 | Outpatient (BNVA) | payer MEDICARE, SELFPAY | PROVIDERS: PCP Internal Medicine; Visit Provider Student in an Organized Health Care Education/Training Program | DX: E05.90 Thyrotoxicosis, unspecified without thyrotoxic crisis or storm (principal); M81.0 Age-related osteoporosis without current pathological fracture; I10 Essential (primary) hypertension; E78.5 Hyperlipidemia, unspecified | CPT/HCPCS: 99212 ==

== ENCOUNTER 2025-04-15 10:58 | Outpatient (REF) | payer MEDICARE, SELFPAY ==
--- NOTE | ~2025-04-15 | MM_ITS ---
EXAMINATION: DXA BONE DENSITY EXTREMITY HISTORY: M81.0 - Age-related osteoporosis without current pathological fracture TECHNIQUE: Jounce Dual energy absorptiometry (DEXA) of the lumbar spine, total left hip, femoral neck, and distal radius was performed. COMPARISON: Comparison is made with the prior examination dated 12/28/2021. FINDINGS: The bone mineral density of the lumbar spine is 1.363 g/cm2, corresponding to a T-score of 1.5, and a Z-score of 2.4. This is indicative of normal bone mineral density. This represents a BMD change of 6.9% compared to the prior exam. This is statistically significant. The bone mineral density of the left total hip is 0.954 g/cm2, corresponding to a T-score of -0.4, and a Z-score of 0.4. This is indicative of normal bone mineral density. This represents a BMD change of 4.5% compared to the prior exam. This is statistically significant. The bone mineral density of the left femoral neck is 1.046 g/cm2, corresponding to a T-score of 0.1, and a Z-score of 1.2. This is indicative of normal bone mineral density. This represents a BMD change of 5.4% compared to the prior exam. The bone mineral density of the left femoral neck is 0.809 g/cm2, corresponding to a T-score of -0.8, and a Z-score of 1.0. This is indicative of normal bone mineral density. FRACTURE RISK: The FRAX index suggests a ten year probability of major osteoporotic fracture of 3.6%, and of hip fracture 0.2%. MM/XR DEXA appendicular skeleton IMPRESSION: Based on bone mineral density, and according to World Health Organization (WHO) criteria, the diagnosis is consistent with normal bone mineral density. Statistically, 68% of repeat scans fall within 1 SD (+/- 0.010 g/cm2 for AP spine L1-L4) and 1 SD (+/- 0.012 g/cm2 for femur total) FRAX is a trademark of the [employer] [place] [facility] [employer], a World Health Organization (WHO) Collaborating Center. Electronically signed by: Mino Marie MD 04/15/2025 11:38 AM EDT RP
--- OUTSIDE RECORDS SUMMARY | 2025-04-15 11:36 | XMS_ITS | Clinical Summary ---
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 16 g 2 4 Active losartan-hydroCHL OROthiazide (Hyzaar) 100-12.5 MG tabletIndications :Primary hypertension Take 1 tablet by mouth Once per day. 90 tablet 3 4 08/16/20 25 Active calcium carbonate 1500 (600 Ca) MG tabletIndications :Hyperparathyroid ism ([facility]) take 1 tablet once a day PO 90 tablet 3 4 Active estradiol (Estrace) 0.1 MG/GM vaginal cream 1g vaginally twice weekly as needed 85 g 1 4 Active SITagliptin (Januvia) 100 MG tabletIndications :Type 2 diabetes mellitus without complication, without long-term current use of insulin ([facility]) Take 1 tablet (100 mg) by mouth [...] times daily 100 each 3 5 Active Diclofenac Sodium 1 % gel APPLY 1 INCH TO AFFECTED AREA(S) TWICE DAILY IN THE MORNING AND AT BEDTIME NEEDED FOR PAIN 100 g 5 Active Hospital, Clinic, or Other Facility [...] tolerated. [facility], may need a [...] Plan (08/17/2024 6:30 PM EST): Seen [place] [facility] [place] and no surgical correction needed. Continue to fu with Dr Navarro Monitor PTH/Ca/Phos levels yearly Assessment & Plan (04/13/2024 12:58 PM EDT): - calcium supplementation for now and followed by Dr. Navarro, final armature tester - f/u with [facility] as well to discuss potential re-exploration of her parathyroid gland Assessment & Plan (04/23/2023 11:58 AM EDT): Seen by final armature tester, calcium phosphorous not at goal. Continue phosphorous [...] Type Department Care Team Description 03/07/2025 Refill [facility] [address] [place] [address] Regine Linda MD 02/15/2025 Orders Only [facility] [address] [place] [phone] Regine Linda MD 01/20/2025 Telephone [facility] [address] [place] [address] Reigne Linda MD April recall from Last 3 Months Immunizations Immunization Administration [...] 88 12/13/2024 10:23 AM EDT Temperature 35.6 C (96 F) 12/13/2024 10:23 AM EDT Respiratory Rate 16 [...] Description 04/27/2025 11:15 AM EDT Office Visit [facility] [address], [place] [phone] Regine Linda MD [address] [place], [place] [phone] Health Maintenance Due Date Last Done Comments [...] history exists Depression Screening 04/13/2025 04/13/2024, 04/13/20 Influenza Vaccine (#1) 2025 , 06/16/2023, 07/24/2022, Additional history exists Tobacco Screening 08/16/2025 08/16/2024 SDOH Screening 12/07/2025 12/07/2024 Diabetes: Foot Exam 12/13/2025 12/13/2024, 12/13/2024, 12/13/2024, Additional history exists Mammogram 02/15/2026 02/15/2025, 04/0 04/2025, 01/05/2024, Additional history exists Eye Exam 05/06/2026 05/06/2024, 08/0 10/2023, 05/06/2024, Additional history exists RSV Patients and Patients Aged 60 years or older (1 - 1-dose 75+ series) 2030 DTaP/Tdap/Td Vaccines (2 - Td or Tdap) 11/29/2031 11/29/2021 Pneumococcal Vaccine: 50+ Years Completed 06/16/2023, 11/29/2021 Zoster Vaccines Completed 08/04/2023, 07/3 10/2022, 11/02/2018 HIB Vaccines Aged Out No longer eligi [...] VIEW LEFT Routine 02/15/2025 11:10 AM EDT POCT GLYCATED HEMOGLOBIN, TOTAL Routine 08/16/2024 11:24 [...] AM EDT Narrative 02/15/2025 12:51 PM EDT [place] [facility] [address] [place] [address] Ultrasound Report Signed Patient: Ledy Alegria MR#: [id number] 470 : 1955 Acct:[id number] Age/Sex: 69 / F ADM Date: 02/15/25 Loc: HO.MAMMO Attending Dr: Regine Linda MD Ordering Physician: Regine Linda MD Date of Service: 02/15/25 Procedure(s): US breast LT limited mamm only Accession Number(s): [id number] cc: Regine Linda MD EXAMINATION: MM DIAGNOSTIC [...] Bradley DO in OV> 02/15/25 1248 DD/ 1130 TD/TT: 02/15/25 1152 Broke Beater Operator: Procedure Note Donotuseinterpreter, Image - 02/15/2025 [facility] [address] [place], [place] [address] Ultrasound Report Signed Patient: Ledy Alegria LMR#: [id number] 470 : 1955cct:[id number] Age/Sex: 69 / FADM Date: 02/15/25 Loc: HO.MAMMO Attending Dr: Regine Linda MD Ordering Physician: Regine Linda MD Date of Service: 02/15/25 Procedure(s): US breast LT limited mamm only Accession Number(s): [id number] cc: Regine Linda MD EXAMINATION: MM DIAGNOSTIC [...] Bradley DO in OV> 02/15/25 1248 DD/ 1130 TD/TT: 02/15/25 1152 Broke Beater Operator: Regine Linda MD IMG US PROCEDURES Final Result * BI Mammogram Diagnostic Tomosynthesis added left (02/15/2025 11:10 AM EDT) Anatomical Region Laterality Modality Breast Left Mammography 02/15/2025 11:1 0 AM EDT Narrative 02/15/2025 12:51 PM EDT [facility] [address] [place] [address] Mammography Report Signed Patient: Ledy Alegria MR#: [id number] 470 : 1955 Acct:[id number] Age/Sex: 69 / F ADM Date: 02/15/25 Loc: HO.MAMMO Attending Dr: Regine Linda MD Ordering Physician: Regine Linda MD Results: 1Ne gative Date of Service: 02/15/25 Follow Up: 1 Year From [facility] Mammogram Procedure(s): MM tomosynthesis added views L Accession Number(s): [id number] cc: Regine Linda MD EXAMINATION: MM DIAGNOSTIC [...] 02/15/25 1248 DD/ 1110 TD/TT: 02/15/25 1129 Broke Beater Operator: Procedure Note Donotuseinterpreter, Image - 02/15/2025 [facility] [address] [place] [address] Mammography Report Signed Patient: Ledy Alegria LMR#: [id number] 470 : 1955cct:[id number] Age/Sex: 69 / FADM Date: 02/15/25 Loc: HO.MAMMO Attending Dr: Regine Linda MD Ordering Physician: Regine Linda MDResults: 1Ne gative Date of Service: 02/15/25Follow Up: 1 Year From Orig ina Mammogram Procedure(s): MM tomosynthesis added views L Accession Number(s): [id number] cc: Regine Linda MD EXAMINATION: MM DIAGNOSTIC [...] 02/15/25 1248 DD/ 1110 TD/TT: 02/15/25 1129 Broke Beater Operator: Regine Linda MD IMG BI PROCEDURES Final Result * (ABNORMAL) POCT HGB A1C (08/16/2024 11:24 AM EST) Hemoglobin A1C 6.5(A) 4.0 - 6.0 % QC Media Lot # [id number] Lot# Expiration Date [id number] Blood 08/16/2024 11:2 4 AM EST Regine Linda MD POINT OF CARE TEST ENTER /EDIT ORDERABLES Final Result * Albumin, Random Urine W/Creatinine (06/13/2023 10:08 AM EDT) Creatinine, Urine 138.71 mg/dL [facility] Microalbumin Urine <5.0 mg/L [facility] Microalbum Creatinine Ratio Ur TNP <30 ug/mg cr [facility] Comment:Unable to calculate albumin/creatinine ratio due to lowmicroalbumin or creatinine result. 06/13/2023 10:0 8 AM EDT 06/13/2023 11:47 AM EDT Regine Linda MD LAB URINE ORDERABLES Fin al Result [facility] [address] [place] [address] [phone] * (ABNORMAL) Lipid Panel with Reflex to Direct LDL (06/13/2023 10:00 AM EDT) Triglycerides 162(H) <150 mg/dL [facility] Comment:Desirable Triglyceri de: less than 150 mg/dLBorderline High Triglyceride 150-199 mg/dLHigh Triglyceride: 200-499 mg/dLVery High Triglyceride: greater than or equal to 5OO mg/dL Cholesterol 146 <200 mg/dL [facility] Comment:Desirable Cholestero l: less than 200 mg/dLBorderline High Cholesterol: 200-239 mg/dLHigh Cholesterol: greater than 239 mg/dL LDL Cholesterol Calculated 76 <100 mg/dL [facility] Comment:Desirable LDL: less than 100 mg/dLNear Optimal/Above Optimal LDL: 110- 129 mg/dLBorderline High LDL: 130-159 mg/dLHigh LDL: 160-189 mg/dLVery High LDL: greater than or equal to 190 mg/dL HDL Cholesterol 38(L) >40 mg/dL [facility] Comment:Desirable HDL: great er than 40 mg/dL Note: This HDL assay may give artificially low results in patients with liver disease. Blood 06/13/2023 10:0 0 AM EDT 06/13/2023 11:12 AM EDT us Regine Linda MD LAB BLOOD ORDERABLES Fin al Result [facility] [address] [place] [address] [phone] * Hm Colonoscopy (03/08/2014 3:15 PM EDT) Colonoscopy Normal Normal Narrative Ami Benavides - 03/08/2014 3:15 PM EDT Recommended 10 year follow up us Historical Provider HEALTH MAINTENANCE Edited Result - Final from Last 3 Months or Most Recently Relevant to Health Maintenance Insurance [facility] [employer] [facility] Care Teams Slitter Scorer Cut Off Operator Relationship Specialty Start Date End Date Regine Linda MD [address] [place] [phone] PCP - General Family Medicine 10/06/18
== END 2025-04-15 10:59 | disposition home or self-care (01) ==
LOC: HO.MAMMO 10:58
PROVIDERS: Visit Provider Student in an Organized Health Care Education/Training Program
DX: M81.0 Age-related osteoporosis without current pathological fracture (principal); E34.9 Endocrine disorder, unspecified
CPT/HCPCS: 77081

== ENCOUNTER → 2025-04-15 11:00 | Outpatient (BNV) | payer MEDICARE, SELFPAY | PROVIDERS: Visit Provider Radiology Diagnostic Radiology | DX: E28.39 Other primary ovarian failure (principal) | CPT/HCPCS: 77081 ==

== ENCOUNTER 2025-05-02 09:45 | Outpatient (REF) | payer MEDICARE, SELFPAY ==
--- OUTSIDE RECORDS SUMMARY | 2025-05-02 10:42 | XMS_ITS | Clinical Summary ---
Author Organization [employer] Address [address] [facility] [address] [place] [address] Care Team Providers Care Restorative Aide Name Role Phone Regine Linda MD Primary Care Provider + Allergies No known active allergies Medications Blood Glucose Monitoring Suppl (V[employer] Verio Flex System) w/Device kitIndications: Type 2 diabetes mellitus without complication, without long-term current use of insulin ([facility]) TEST BLOOD SUGAR TWICE DAILY 1 kit 11/18/19 23 Active fluticasone (Flonase) 50 MCG/ACT nasal spray Administer 1 spray into each nostril Once per day. 16 g 2 08/16/20 24 Active losartan-hydroC HLOROthiazide (Hyzaar) 100-12.5 MG tabletIndicatio ns:Primary hypertension Take 1 tablet by mouth Once per day. 90 tablet 3 08/16/20 24 025 Active estradiol (Estrace) 0.1 MG/GM vaginal cream 1g vaginally twice weekly as needed 85 g 1 08/16/20 24 Active lovastatin (Mevacor) 20 MG tablet Take 1 tablet (20 mg) by mouth with evening meal. 90 tablet 3 08/16/20 24 025 Active loratadine (Claritin) 10 MG tabletIndicatio ns:Rhinorrhea TAKE 1 TABLET BY MOUTH EVERY DAY IN THE MORNING 90 tablet 3 10/26/19 25 Active glucose blood test strip Use 1x/d 100 each 11 12/14/19 25 026 Active OneTouch Delica Lancets 33G misc Use to test blood sugar 1x times daily 100 each 3 12/14/19 25 Active Diclofenac Sodium 1 % gel Apply to affected area bid prn pain 100 g 3 04/27/20 25 Active SITagliptin (Januvia) 50 MG tabletIndicatio ns:Type 2 diabetes mellitus without complication, without long-term current use of insulin ([facility]) Take 1 tablet (50 mg) by mouth Once per day. 90 tablet 3 04/27/20 25 026 Active Calcium Carbonate-Vit D-Min (Caltrate 600+D Plus Minerals) 600-800 MG-UNIT tablet Take 1 tablet by mouth 2 times daily. 180 tablet 3 04/27/20 25 Active calcium carbonate 1500 (600 Ca) MG tabletIndicatio ns:Hyperparathy roidism ([facility]) take 1 tablet once a day PO 90 tablet 3 08/16/20 24 025 Discontinued(I neffective) SITagliptin (Januvia) 100 MG tabletIndicatio ns:Type 2 diabetes mellitus without complication, without long-term current use of insulin ([facility]) Take 1 tablet (100 mg) by mouth Once per day. 90 tablet 3 08/16/20 24 025 Discontinued(R eorder (will not trigger notification to Pharmacy)) Diclofenac Sodium 1 % gel APPLY 1 INCH TO AFFECTED AREA(S) TWICE DAILY IN THE MORNING AND AT BEDTIME NEEDED FOR PAIN 100 g 03/08/20 25 025 Discontinued(R eorder (will not trigger notification to Pharmacy)) Hospital, Clinic, or Other Facility Administered Medication Ordered Dose Route Frequency Start Date End Date Status lidocaine (Xylocaine) 2 % injection 20 mgIndications:Inflamed skin tag 20 mg IJ Once 08/06/2024 Active Active Problems Problem Noted Date Diagnosed Date Wart of scalp 04/27/2025 Assessment & Plan (04/27/2025 3:07 PM EDT): Refer to dermatology for resection as she is symptomatic and lesions sometimes bleed Osteoarthritis of fingers of both hands 12/14/19 Assessment & Plan (12/13/2024 1:04 PM EDT): [...] on her back - refer to dermatology Postmenopausal 06/16/2023 Diabetes due to underlying condition w oth paolou aline comp 06/16/2023 Encounter for preventive health examination [...] visit: UTD, next one due on 08/2023 Dietary counseling 06/16/2023 Allergic rhinitis due to pollen 04/17/2023 Senile osteoporosis 04/17/2023 Primary insomnia 04/17/2023 Metabolic syndrome X 04/17/2023 Tinea corporis 04/17/2023 Hypertension 11/14/2022 Assessment & Plan (12/13/2024 10:46 [...] diabetes mellitus without complication Assessment & Plan (04/27/2025 3:07 PM EDT): Controlled. A1c is low, unclear if she has more than 1 episode of hypoglycemia. Lower Januvia to 50mg/d and fu in 3m Counseled re more frequent low calorie/carb meals, avoid sweet beverages. Check fgstk once daily and as needed hypoglycemic symptoms Encouraged physical activity as tolerated. FU in 3-4 months with labs. Assessment & Plan (12/13/2024 1:00 PM EDT): [...] activity as tolerated. FU in 3 months. Hyperparathyroidism 11/02/2018 Assessment & Plan (12/13/2024 1:02 PM EDT): Seen by ENT and deemed not to be a surgical candidate at this time. Patient will schedule appointment with Dr. Navarro. Continue regular lab FU and refer back to ENT if needed. Assessment & Plan (08/17/2024 6:30 PM EST): Seen by [facility] and no surgical correction needed. Continue to fu with Dr Navarro Monitor PTH/Ca/Phos levels yearly Assessment & Plan (04/13/2024 12:58 PM EDT): - calcium supplementation for now and followed by Dr. Navarro, filter machine operator - f/u with [facility]NT as well to discuss potential re-exploration of her parathyroid gland Assessment & Plan (04/23/2023 11:58 AM EDT): Seen by filter machine operator, calcium phosphorous not at goal. Continue [...] dermatitis 12/30/2017 Low vision, both eyes 12/30/2017 Hyperlipidemia 04/22/2017 H/O parathyroidectomy 04/22/2017 Resolved Problems Problem Noted Date Diagnosed Date Resolved Date At high risk for osteoporosis 06/16/2023 04/27/2025 Assessment & Plan (06/16/2023 8:35 PM EDT): Patient is postmenopausal, discussed with her re risk of falls and fractures. Order Dexa scan Exercise counseling 06/16/2023 04/27/20 25 IFG (impaired fasting glucose) 04/17/2023 04/27/2025 Rhinorrhea 11/14/2022 04/27/2025 Assessment & Plan (11/14/2022 12:40 PM EST): I prescribed prescription loratadine to use PRN. Impacted cerumen 12/30/2017 04/27/2025 Encounters Date Type Department Care Team Description 04/27/2025 11:15 AM EDT Office Visit [facility] [address] [place] [phone] Regine Linda MD Type 2 diabetes mellitus without complication, without long-term current use of insulin ([facility]) (Primary Dx); Wart of scalp; Encounter for colorectal cancer screening 04/27/2025 Travel 04/26/2025 Telephone [facility] [address] [place] [phone] Regine Linda MD chart prep 04/19/2025 Patient Outreach [facility] [address] [place] [phone] Regine Linda MD Pre-visit Planning ([facility] screening completed on 12/07/2024) 03/07/2025 Refill [facility] [address] [place] [phone] Regine Linda MD 02/15/2025 Orders Only [facility] [place] [phone] Regine Linda MD from Last 3 Months Immunizations Immunization Administration [...] Packs/Day Years Used Date Smoking Tobacco: Never Passive Smoke Exposure: Past Smokeless Tobacco: Never Tobacco Cessation:Counseling Given: Not Answered Alcohol Use Standard Drinks/Week Comments Yes 1 (1 standard drink = 0.6 oz pur e alcohol) occasionally Depression Answer Date Recorded Patient Health Questionnaire-9 Score 0 04/27/2025 Patient Health Questionnaire-9 Score 0 04/27/2025 Last PHQ-9: Questionnaire Data Not on file 0 04/27/2025 Housing Stability Answer Date Recorded What is [...] Date Recorded Patient Health Questionnaire-2 Score 0 04/27/2025 Internet Access Answer Date Recorded Internet Access [...] Sign Reading Time Taken Comments Blood Pressure 120/84 04/27/2025 11:45 AM EDT Pulse 80 04/27/2025 11:45 AM EDT Temperature 36.9 C (98.4 F) 04/27/2025 11:45 AM EDT Respiratory Rate 19 04/27/2025 11:45 AM EDT Oxygen Saturation 97% 12/13/2024 10:23 AM EDT Inhaled Oxygen Concentration - - Weight 79.6 kg (175 lb 8 oz) 04/27/2025 11:45 AM EDT Height 160 cm (5' 3 ) 04/27/2025 11:45 AM EDT Body Mass Index 31.09 04/27/2025 11:45 AM EDT Plan of Treatment Health Maintenance Due Date Last Done Comments CT Colonography 1955 FIT DNA/Cologuard 1955 FIT 1955 FOBT 1955 Sigmoidoscopy 1955 Hepatitis C Screening 1973 Colonoscopy 03/08/2024 03/08/2014 Colorectal Cancer Screening 03/08/2024 Diabetes: Urine Protein Screening 06/13/2024 06/13/2023, 02/27/2022 Lipid Panel 06/13/2024 06/13/2023, 02/27/2022 COVID-19 Vaccine ( season) 2025 08/06/2024, 08/05/2022, 11/29/2021, Additional history exists Influenza Vaccine (#1) 2025 , 06/16/2023, 07/24/2022, Additional history exists Diabetes: Hemoglobin A1C 10/28/2025 025, 08/16/2024, 04/13/2024, Additional history exists SDOH Screening 12/07/2025 12/07/2024 Diabetes: Foot Exam 12/13/2025 12/13/2024, 12/13/2024, 12/13/2024, Additional history exists Mammogram 02/15/2026 02/15/2025, 04/0 04/2025, 01/05/2024, Additional history exists Alcohol/Substance Use Screening 04/27/2026 04/27/2025 Depression Screening 04/27/2026 04/27/2025, 04/27/20 Tobacco Screening 04/27/2026 04/27/2025 Eye Exam 05/06/2026 05/06/2024, 08/0 10/2023, 05/06/2024, Additional history exists RSV Patients and Patients Aged 60 years or older (1 - 1-dose 75+ series) 2030 DTaP/Tdap/Td Vaccines (2 - Td or Tdap) 11/29/2031 11/29/2021 Pneumococcal Vaccine: 50+ Years Completed 06/16/2023, 11/29/2021 Zoster Vaccines Completed 08/04/2023, 07/10/2022, 11/02/2018 HIB Vaccines Aged Out No longer [...] Name Priority Date/Time Associated Diagnosis Comments POCT GLYCATED HEMOGLOBIN, TOTAL Routine 04/27/2025 11:51 AM EDT Type 2 diabetes mellitus without complication, without long-term current use of insulin ([facility]) POCT GLUCOSE Routine 04/27/2025 11:50 AM EDT Type 2 diabetes mellitus without complication, without long-term current use of insulin ([facility]) BI US BREAST LIMITED LEFT Routine 02/15/2025 11:30 AM EDT BI MAMMOGRAM DIAGNOSTIC TOMOSYNTHESIS ADDED VIEW LEFT Routine 02/15/2025 11:10 AM EDT ALBUMIN, RANDOM URINE W/CREATININE Routine 06/13/2023 10:08 AM EDT LIPID PANEL WITH REFLEX TO DIRECT LDL Routine 06/13/2023 10:00 AM EDT Primary hypertension Type 2 diabetes mellitus without complication, without long-term current use of insulin ([facility]) HM COLONOSCOPY Routine 03/08/2014 3:15 PM EDT from Last 3 Months or Most Recently Relevant to Health Maintenance Results * (ABNORMAL) POCT HGB A1C (04/27/2025 11:51 AM EDT) Hemoglobin A1C 6.6(A) 4.0 - 5.7 % QC Media Lot # [id number] Lot# Expiration Date ,630,361 Blood 04/27/2025 11:5 1 AM EDT Regine Linda MD POINT OF CARE TEST ENTER /EDIT ORDERABLES Final Result * POCT Glucose (04/27/2025 11:50 AM EDT) Glucose Blood, POC 82 60 - 200 mg/dL QC Media Lot # [id number] Lot# Expiration Date ,326,370 Blood Capillary blood specimen / Unknown 04/27/2025 11:50 AM EDT Regine Linda MD POINT OF CARE TEST ENTER /EDIT ORDERABLES Final Result * BI US Breast Limited Left (02/15/2025 11:30 AM EDT) Anatomical Region Laterality Modality Breast Left Ultrasound 02/15/2025 11:3 0 AM EDT Narrative 02/15/2025 12:51 PM EDT [facility] [address] [place] [address] Ultrasound Report Signed Patient: Ledy Alegria MR#: [id number] 470 : 1955 Acct:[id number] Age/Sex: 69 / F ADM Date: 02/15/25 Loc: HO.MAMMO Attending Dr: Regine Linda MD Ordering Physician: Regine Linda MD Date of Service: 02/15/25 Procedure(s): US breast LT limited mamm only Accession Number(s): [id number] cc: Regine Linda MD EXAMINATION: MM DIAGNOSTIC [...] 02/15/25 1248 DD/ 1130 TD/TT: 02/15/25 1152 Flue Lining Dipper: Procedure Note Donotuseinterpreter, Image - 02/15/20[facility] [address] [place], [place] [address] Ultrasound Report Signed Patient: Ledy Alegria LMR#: [id number] 470 : 1955cct:[id number] Age/Sex: 69 / FADM Date: 02/15/25 Loc: HO.MAMMO Attending Dr: Regine Linda MD Ordering Physician: Regine Linda MD Date of Service: 02/15/25 Procedure(s): US breast LT limited mamm only Accession Number(s): [id number] cc: Regine Linda MD EXAMINATION: MM DIAGNOSTIC [...] 02/15/25 1248 DD/ 1130 TD/TT: 02/15/25 1152 Flue Lining Dipper: us Regine Linda MD IMG US PROCEDURES Final Result * BI Mammogram Diagnostic Tomosynthesis added left (02/15/2025 11:10 AM EDT) Anatomical Region Laterality Modality Breast Left Mammography 02/15/2025 11:1 0 AM EDT Narrative 02/15/2025 12:51 PM EDT [facility] [address] [place] [address] Mammography Report Signed Patient: Ledy Alegria MR#: [id number] 470 : 1955 Acct:[id number] Age/Sex: 69 / F ADM Date: 02/15/25 Loc: HO.MAMMO Attending Dr: Regine Linda MD Ordering Physician: Regine Linda MD Results: 1Ne gative Date of Service: 02/15/25 Follow Up: 1 Year From Orig inal Mammogram Procedure(s): MM tomosynthesis added views L Accession Number(s): [id number] cc: Regine Linda MD EXAMINATION: MM DIAGNOSTIC [...] 02/15/25 1248 DD/ 1110 TD/TT: 02/15/25 1129 Flue Lining Dipper: Procedure Note Donotuseinterpreter, Image - 02/15/2025 [place] [facility] [address] [place] [address] Mammography Report Signed Patient: Ledy Alegria LMR#: [id number] 470 : 6Acct:[id number] Age/Sex: 69 / FADM Date: 02/15/25 Loc: HO.MAMMO Attending Dr: Regine Linda MD Ordering Physician: Regine Linda MDResults: 1Ne gative Date of Service: 02/15/25Follow Up: 1 Year From Orig ina Mammogram Procedure(s): MM tomosynthesis added views L Accession Number(s): [id number] cc: Regine Linda MD EXAMINATION: MM DIAGNOSTIC [...] 02/15/25 1248 DD/ 1110 TD/TT: 02/15/25 1129 Flue Lining Dipper: us Regine Linda MD IMG BI PROCEDURES Final Result * Albumin, Random Urine W/Creatinine (06/13/2023 10:08 AM EDT) Creatinine, Urine 138.71 mg/dL [facility] Microalbumin Urine <5.0 mg/L [facility] Microalbum Creatinine Ratio Ur TNP <30 ug/mg cr [facility] Comment:Unable to calculate albumin/creatinine ratio due to lowmicroalbumin or creatinine result. 06/13/2023 10:0 8 AM EDT 06/13/2023 11:47 AM EDT us Regine Linda MD LAB URINE ORDERABLES Fin al Result Performing Organization Address [facility] Co de Phone Number [facility] [address] [place] [phone] * (ABNORMAL) Lipid Panel with Reflex to Direct LDL (06/13/2023 10:00 AM EDT) Triglycerides 162(H) <150 mg/dL [facility] Comment:Desirable Triglyceri de: less than 150 mg/dLBorderline High Triglyceride 150-199 mg/dLHigh Triglyceride: 200-499 mg/dLVery High Triglyceride: greater than or equal to 5OO mg/dL Cholesterol 146 <200 mg/dL [facility] Comment:Desirable Cholestero l: less than 200 mg/dLBorderline High Cholesterol: 200-239 mg/dLHigh Cholesterol: greater than 239 mg/dL LDL Cholesterol Calculated 76 <100 mg/dL [facility] Comment:Desirable LDL: less than 100 mg/dLNear Optimal/Above Optimal LDL: 110- 129 mg/dLBorderline High LDL: 130-159 mg/dLHigh LDL: 160-189 mg/dLVery High LDL: greater than or equal to 190 mg/dL HDL Cholesterol 38(L) >40 mg/dL [facility] Comment:Desirable HDL: great er than 40 mg/dL Note: This HDL assay may give artificially low results in patients with liver disease. Blood 06/13/2023 10:0 0 AM EDT 06/13/2023 11:12 AM EDT us Regine Linda MD LAB BLOOD ORDERABLES Fin al Result Performing Organization Address [facility]/ZIP Co de Phone Number [facility] [address] [place] [phone] * Hm Colonoscopy (03/08/2014 3:15 PM EDT) Colonoscopy Normal Normal Narrative Ami Benavides - 03/08/2014 3:15 PM EDT Recommended 10 year follow up us Historical Provider HEALTH MAINTENANCE Edited Result - Final from Last 3 Months or Most Recently Relevant to Health Maintenance Insurance [facility] STANDARD Care Teams Restorative Aide Relationship Specialty Start Date End Date Regine Linda MD [address] [place] [phone] PCP - General Family Medicine 10/06/18
--- OUTSIDE RECORDS SUMMARY | 2025-05-02 10:42 | XMS_ITS | Encounter Summary ---
Author Organization [facility] Address [address] [facility] [address] [place] [phone] Phone Care Team Providers Care Marine Mammal Trainer Name Role Phone Unknown, Unknown Primary Care Provider Crista gallagher Encounter Details Date Type Department Care Team (Late st Contact Info) Description 04/01/2024 Procedure Pass [facility] [address] [place] [address] [place] [address] Social History Tobacco Use Types Packs/Day Years Used Date Smoking Tobacco: Never Smokeless Tobacco: Never Alcohol Use Standard Drinks/Week Comments Not Currently 0 (1 standard drink = 0.6 oz pur e alcohol) Education Answer Date Recorded Are you interested in more education? Not on diana e 01/19/2024 Are you concerned about learning? Not on file 01/19/2024 No 01/19/2024 No 01/19/2024 Digital Access Answer Date Recorded No 01/19/2024 No 01/19/2024 Reliable internet access at home? Not on file 01/19/2024 Device with a working camera? Not on file Comments Unknown Sex and Gender Information Value Date Recorded Sex Assigned at Not on file Legal Sex Female 12:10 PM EDT Gender Identity Not on file Sexual Orientation Not on file documented as of this encounter Plan of Treatment Not on file documented as of this encounter Visit Diagnoses Not on filedocumented in this encounter Care Teams Marine Mammal Trainer Relationship Specialty Start Date End Date Unknown, Unknown, PCP - General 01/19/24 documented as of this encounter Additional Source Comments The information contained in this document represents components of the legal health record. It is not the complete legal health record.[facility]
[2025-05-02 11:56] LABS: Albumin Level 4.5 g/dL (3.5-5.0); Calcium 9.6 mg/dL (8.4-10.2); Estimated Glomerular Filt Rate 45
[2025-05-02 12:22] LABS: Total Volume 24 Hour Urine 2050 mL
[2025-05-02 12:27] LABS: Parathyroid Hormone Intact 118.6 pg/mL (8.7-77.1)
[2025-05-02 12:34] LABS: Creatinine, mg/dL 69.16
[2025-05-03 16:03] LABS: Calcium, Ionized 5.3 mg/dL (4.7-5.5)
[2025-05-04 18:03] LABS: Calcium/Creatinine Ratio 49 mg/g creat (30-275); Creatinine 24Hr Urine 1.48 g/24 h (0.50-2.15)
[2025-05-06 19:34] LABS: Collagen Type I C-Telopeptide 350 pg/mL (see note)
== END 2025-05-02 09:46 | disposition home or self-care (01) ==
LOC: HO.LAB 09:45
PROVIDERS: PCP Internal Medicine; Visit Provider Student in an Organized Health Care Education/Training Program
DX: M81.0 Age-related osteoporosis without current pathological fracture (principal); E21.3 Hyperparathyroidism, unspecified
CPT/HCPCS: 36415; 82040; 82306; 82310; 82330; 82340; 82523; 82565; 82570; 83970; 84075; 84100

== ENCOUNTER 2025-06-20 11:25 | Outpatient (AMB) | payer MEDICARE, SELFPAY ==
[2025-06-20 11:28] VITALS: BP 112/76; PULSE 95; O2SAT 95; BMI 28.8
--- NOTE | 2025-06-20 11:28 | A.OFFVIS_ITS ---
Vital Signs 06/20/25 11:28 Height 5 ft 6 in Weight 178 lb 9.191 oz BMI 28.8 BP 112/76 Blood Pressure Location Lt brachial Position Sitting Pulse 95 Pulse Source Pulse Oximeter Pulse Oximetry (%) 95 Oxygen Delivery Method Room Air Intake Visit Reasons: f/u hyperparathyroidism Intake Note: Patient present today for hyperparathyroidism office visit. Automobile Designer Required: Yes Automobile Designer Language: Gas Line Installer Supervisor Services: Automobile Designer Present Automobile Designer Name: Phi [id number] Information Interpreted: non-clinical & clinical Accompanied by: Self / Same As Patient Allergies No Known Allergies Allergy (Verified 06/20/25 11:32) Medication List - Last Reconciled 06/20/25 by Glenis Shipley MD blood sugar diagnostic ([employer] Verio test strips) As directed blood-glucose meter (Ambiq Microuch Verio Flex Meter) As directed calcium carbonate-vitamin D3 600 mg-25 mcg (1,000 unit) caps PO clotrimazole 1% appl topical estradiol 0.01%(0.1mg/gram) 1 g vaginal 2XW lancets (Ambiq Microuch Delica Plus Lancet) As directed loratadine 10 mg PO QAM losartan 50 mg PO DAILY lovastatin 20 mg PO QPM metformin ER 500 mg PO QPM HPI Comments Details: 69 YO F with who is seen for follow up of recurrent hyperparathyroidism. Status post parathyroid surgery 08/04/[address] Eleazar Aguirre at [facility]. Now following for recurrent hyperparathyroidism and osteoporosis. Past medical history significant for hypertension, hyperlipidemia. HPI Diagnosis of primary hyperparathyroidism in 2011, preoperative parathyroid imaging revealed solitary left superior parathyroid adenoma status post minimally invasive parathyroidectomy on 08/04/2012 with removal offs left sup erior parathyroid adenoma, intraoperative PTH declined from 174-36, grossly normal left inferior parathyroid was visualized and preserved, right-sided parathyroids were not explored. Pathology of the left superior parathyroid confirmed hypercellular parathyroid tissue. Early postoperative lab results revealed normal calcium and PTH. Sometime in 2022 she was following with her PP CP and was found to have elevated PTH levels. From available records 10/29/2022 calcium 9.8, PTH 114, vitamin-D 55, 24 hour urine calcium 149. Labs 02/27/2022: PTH 99, creatinine 1.08, calcium 9.7. No hydrochlorothiazide or lithium use. No history of kidney stones No fractures DEXA scan in December 2021 showed osteoporosis with T-score of-2.8 in the left femur. Given elevated PTH level with osteoporosis, patient was referred to Dr. Eleazar Aguirre for surgical evaluation and had a consultation in June 2023. Denies any personal of head or neck radiation, family history of , thyroid cancers or endocrine tumors. Sister: parathyroid surgery Father: osteoporosis? Currently using Calcium supplement 600 mg BID ? Vitamin D: thinks there might be some vitamin D ? Per patient she was evaluated by Dr. Johnnie Leone in [place] at [facility] , sounded like she underwent sestemambi and US of the parathyroid with them and was decided no surgery needed. Osteoporosis risk factors No history of fractures No prior treatment Menopausal natural at age 52, regular periods , normal menarche. Never smoker thinks father had osteoporosis No parents fractured hip No steroid No seizure meds No thyroid disorders No heparin use No PPI use no chronic inflammatory lung or bowel disease. Upto date with dental cleaning every 6 months, no issues. Interval history 04/15/2025: DEXA scan showed normal bone density of the spine with a T-score of 1.5 with a an increase of 6.9% compared to 2022, T-score of 0.1 at the left femoral neck with a an increase of 5.4% in bone density compared to 2022 also consistent with a normal bone density now, and T-score of-0.8 at the left femoral total also consistent with normal bone density. FRAX score for major osteoporotic fracture 3.6%, hip fracture 0.2%. 05/02/2025: Blood work showed calcium of 9.6 with albumin of 4.5, corrected calcium would be 9.1, ionized calcium 5.3, EGFR 45, PTH 118.6, 24 hour urine calcium on the lower side at 72 with a calcium creatinine ratio 49. CTX is also reassuring at 350. vitamin D 49.8 Currently using Calcium supplement 600 mg BID ? Vitamin D: thinks there might be some vitamin D ? Forgot to bring supplement bottles to this appointment Physical exam General: sitting comfortably in no acute distress HEENT: normocephalic/atraumatic Neck: supple Cardiac: normal heart sounds Pulm: normal breath sounds B/L, no added breath sounds Abd: not distended, no tenderness Extremities: no edema, no signs of myxedema Neuro: AAO x3, Speech: normal, no facial droop, moving all 4 extremities Laboratory Tests 10/29/18 10/29/22 11/11/22 08:28 13:22 Unknown Creatinine 0.98 Est GFR (Non-Af Amer) 58 25-OH Vitamin D Total 40.9 55.2 TSH 3rd Generation 2.01 PTH Intact 67 H 114 H Calcium (PTH Intact) 9.8 Ur 24 Hour Volume 2225 Ur Creatinine mg/dL 71.33 Ur Creatinine 24 Hour 1.6 Ur Calcium 24 Hr 149 Calcium/Creat 24 Hr 97 Laboratory Tests 05/02/25 05/02/25 08:00 09:57 Creatinine 1.18 Estimated GFR 45 Calcium 9.6 Ionized Calcium 5.3 Phosphorus 2.6 L Alk Phos Bone Specific 14.1 Albumin 4.5 Collgn I C-Telopeptide 350 25-OH Vitamin D Total 49.8 PTH Intact 118.6 H Ur 24 Hour Volume 2050 Ur Creatinine mg/dL 69.16 Ur Creatinine 24 Hour 1.4 Ur Calcium 24 Hr 72 Calcium/Creat 24 Hr 49 EXAMINATION: DXA BONE DENSITY EXTREMITY 04/15/25 HISTORY: M81.0 - Age-related osteoporosis without current pathological fracture TECHNIQUE: Weibu Dual energy absorptiometry (DEXA) of the lumbar spine, total left hip, femoral neck, and distal radius was performed. COMPARISON: Comparison is made with the prior examination dated 12/28/2021. FINDINGS: The bone mineral density of the lumbar spine is 1.363 g/cm2, corresponding to a T-score of 1.5, and a Z-score of 2.4. This is indicative of normal bone mineral density. This represents a BMD change of 6.9% compared to the prior exam. This is statistically significant. The bone mineral density of the left total hip is 0.954 g/cm2, corresponding to a T-score of -0.4, and a Z-score of 0.4. This is indicative of normal bone mineral density. This represents a BMD change of 4.5% compared to the prior exam. This is statistically significant. The bone mineral density of the left femoral neck is 1.046 g/cm2, corresponding to a T-score of 0.1, and a Z-score of 1.2. This is indicative of normal bone mineral density. This represents a BMD change of 5.4% compared to the prior exam. The bone mineral density of the left femoral neck is 0.809 g/cm2, corresponding to a T-score of -0.8, and a Z-score of 1.0. This is indicative of normal bone mineral density. FRACTURE RISK: The FRAX index suggests a ten year probability of major osteoporotic fracture of 3.6%, and of hip fracture 0.2%. MM/XR DEXA appendicular skeleton IMPRESSION: Based on bone mineral density, and according to World Health Organization (WHO) criteria, the diagnosis is consistent with normal bone mineral density. BONE DENSITOMETRY 12/28/21 CLINICAL INDICATION: Encounter for screening for osteoporosis. Postmenopausal. COMPARISON: This is the patient's baseline examination. TECHNIQUE: Using a Advaxis DXA System (software version: 13.1) manufactured by [employer], dual-energy x-ray absorptiometry was performed of the lumbar spine and left hip. The images are of good technical quality. Summary results are attached. FINDINGS: AP SPINE L1-L4: BMD 1.271 g/cm2, Z-score 1.6, T-score 0.8, normal. LEFT FEMUR, NECK: BMD 0.725 g/cm2, Z-score -1.3, T-score -2.3, osteopenia. LEFT FEMUR, TOTAL: BMD 0.649 g/cm2, Z-score -2.2, T-score -2.8, osteoporosis. IDENTIFIED RISK FACTORS: Menopause. Height loss. HISTORY OF FRACTURE: None listed. MEDICATIONS: Vitamin D. MM/XR DEXA axial skeleton IMPRESSION: 1. DIAGNOSIS: Osteoporosis based on the lowest T-score value of -2.8 in the total femur applying World Health Organization criteria. 2. 10-YEAR FRACTURE RISK PREDICTION, FRAX: Major osteoporotic fracture (clinical spine, forearm, hip or shoulder) 6.3%. Hip fracture 1.1%. [facility] Medical History (Updated 03/07/25 @ 13:21 by Glenis Shipley MD) Osteoporosis Elevated parathyroid hormone Surgical History History of delivery Hx of partial thyroidectomy Family History Mother High blood pressure Prediabetes Father High blood pressure Social History Household Members: Spouse and Children Household Members Other:: , daughter Alcohol intake: never Patient Tobacco Use Status: Never used Tobacco Physical Exam Vital Signs: Last Vital Signs Pulse 95 06/20/25 11:28 BP 112/76 06/20/25 11:28 Pulse Ox 95 06/20/25 11:28 Oxygen Delivery Method Room Air 06/20/25 11:28 BMI result Body Mass Index 28.8 Assessment & Plan Assessment & Plan (1) Elevated parathyroid hormone: Code(s): E34.9 - Endocrine disorder, unspecified Category: Medical Plan: 69-year-old female with a history of primary hyperparathyroidism diagnosed in 2011 status post minimally invasive left superior parathyroid adenoma resection with decline of PTH from 174-36, who was found to have recurrent elevated PTH levels sometime in 2022, with a osteoporosis of the hip with a T-score of -2.8 at the total left femur, with normal calcium levels and was referred again to surgery for surgical evaluation. She saw Dr. Eleazar Aguirre at [facility] initially in June 2023 and plan was for exploration for recurrent hyperparathyroidism, however then she was traveling for a bit and then later she was referred to [facility] and saw Dr. Johnnie Leone in summer/fall 2023, she was told for conservative management with follow up of labs, as no parathyroid adenomas were identified on bedside ultrasound. 04/15/2025: DEXA scan showed normal bone density of the spine with a T-score of 1.5 with a an increase of 6.9% compared to 2022, T-score of 0.1 at the left femoral neck with a an increase of 5.4% in bone density compared to 2022 also consistent with a normal bone density now, and T-score of-0.8 at the left femoral total also consistent with normal bone density. FRAX score for major osteoporotic fracture 3.6%, hip fracture 0.2%. 05/02/2025: Blood work showed calcium of 9.6 with albumin of 4.5, corrected calcium would be 9.1, ionized calcium 5.3, EGFR 45, PTH 118.6, 24 hour urine calcium on the lower side at 72 with a calcium creatinine ratio 49. CTX is also reassuring at 350. vitamin D 49.8 Currently using Calcium supplement 600 mg BID ? Vitamin D: thinks there might be some vitamin D ? Forgot to bring supplement bottles to this appointment At this point given reassuring DEXA scan results and CTX levels, she does not need any therapy for osteoporosis. She can continue with conservative management with calcium and vitamin-D as well as weight-bearing exercise. Since her calcium levels have also remained stable, at this point she does not need regular follow up with us, primary care physician can check calcium levels annually to ensure they stay stable. If she develops hypercalcemia she can be referred back to us. Bone density should also be repeated every 2 years and if she develops osteoporosis she can be referred back to us. Plan: -continue current vitamin-D supplementation -continue calcium supplements/dietary intake to maintain 1000 mg daily -weight-bearing exercise advised -primary care physician to repeat bone density scan every 2 years, next 1 would be due April 2027 -primary care physician to check calcium levels annually (2) Osteoporosis: Code(s): M81.0 - Age-related osteoporosis without current pathological fracture Category: Medical Qualifiers: Osteoporosis type: age-related Presence of current pathological fracture: without current pathological fracture Qualified Code(s): M81.0 - Age- related osteoporosis without current pathological fracture Plan: See above Plan I spent 30 minutes in reviewing the record, seeing the patient and documenting in the medical record. Patient Instructions: Your primary care physician/provider can repeat your calcium levels annually and bone density every 2 years, you do not need regular follow up with me for this, they can refer you back if there is any concerns Continue calcium intake to maintain 1000 mg intake between diet/supplement Continue vitamin D supplements Walk 30 mins 5 days a week [employer] m?dico de cabecera puede repetir nadia niveles de calcio anualmente y la densitometr?a ?sea cada 2 a?os. No necesita un seguimiento regular conmigo para esto; pueden derivarlo de nuevo si tiene alguna inquietud. Contin?e con la ingesta de calcio para mantener george ingesta de 1000 mg entre dietas y suplementos. Contin?e con los suplementos de vitamina D. Camine 30 minutos, 5 d?as a la semana Coding Level of Care Code Est Pt Level 4 (46823) Diagnoses Elevated parathyroid hormone E34.9 Age-related osteoporosis without current pathological fracture M81.0 Osteoporosis type: age-related Presence of current pathological fracture: without current pathological fracture Time Spent (min) 30
--- OUTSIDE RECORDS SUMMARY | 2025-06-20 15:41 | XMS_ITS | Encounter Summary ---
Author Organization [facility] Address [address] [place] [address] Care Team Providers Care Integrative Medicine Physician Name Role Phone Regine Linda MD Primary Care Provider + Reason for Visit * Reason Onset Date Comments Med Refill 05/20/2023 Encounter Details Date Type Department Care Team (Late st Contact Info) Description 05/20/2023 Refill [facility] [address] [place], [place] [phone] Regine Linda MD [address] [place] [address] Primary hypertension Social History Tobacco Use Types [...] Care Team (Late st Contact Info) Description 09/26/2025 10:00 AM EST Office Visit [facility] [address] [place] [address] Stephanie Garcia, OD [address] [place] [address] documented as of this encounter Visit Diagnoses Diagnosis Primary hypertension Unspecified essential hypertension documented in this encounter Care Teams Integrative Medicine Physician Relationship Specialty Start Date End Date Regine Linda MD [address] [place] [id number] PCP - General Family Medicine 10/06/18 documented as of this encounter
--- OUTSIDE RECORDS SUMMARY | 2025-06-20 15:41 | XMS_ITS | Encounter Summary ---
Author Organization [employer] Address [address] [place] [address] Care Team Providers Care Social Worker Masters Name Role Phone Regine Linda MD Primary Care Provider + Encounter Details Date Type Department Care Team (Late st Contact Info) Description 05/05/2025 Results Follow-Up [facility] [address] [place], [place] [phone] Regine Linda MD [address] [place] [address] Creatinine, Serum, Calcium, Phosphate (As Phosphorus), Additional followed-up results: 6 Social History Tobacco Use Types Packs/Day Years Used Date Smoking Tobacco: Never Passive Smoke Exposure: Past Smokeless Tobacco: Never Alcohol Use Standard Drinks/Week Comments Yes 1 [...] Description 09/26/2025 10:00 AM EST Office Visit [facility] [address] [place] [address] Tarka, Stephanie, OD [address] [place] [address] documented as of this encounter Visit Diagnoses Not on filedocumented in this encounter Additional Health Concerns Assessment Noted Time PHQ-9 Depression Total Score: 0 04/27/20 25 11:46 AM EDT documented as of this encounter Care Teams Social Worker Masters Relationship Specialty Start Date End Date Regine Linda MD [address] [place] [phone] PCP - General Family Medicine 10/06/18 documented as of this encounter
--- OUTSIDE RECORDS SUMMARY | 2025-06-20 15:41 | XMS_ITS | Encounter Summary ---
Author Organization [facility] Address [address] [place] [address] Care Team Providers Care Western Philosophy Professor Name Role Phone Regine Linda MD Primary Care Provider + Encounter Details Date Type Department Care Team (Late st Contact Info) Description 03/25/2023 Abstract [facility] [address] [place], [place] [phone] Regine Linda MD [address] [place], [place] [phone] Social History Tobacco Use Types Packs/Day Years [...] Description 09/26/2025 10:00 AM EST Office Visit [facility] [address] [place], [place] [phone] TarStephanie streeter, OD [address] [place], [place] [phone] documented as of this encounter Procedures Procedure Name Priority Date/Time Associated Diagnosis Comments HM COLONOSCOPY Routine 03/08/2014 3:15 PM EDT documented in this encounter Results * Hm Colonoscopy (03/08/2014 3:15 PM EDT) Colonoscopy Normal Normal Narrative Ami Benavieds - 03/08/2014 3:15 PM EDT Recommended 10 year follow up Historical Provider [facility] Edited Result - Final documented in this encounter Visit Diagnoses Not on filedocumented in this encounter Care Teams Western Philosophy Professor Relationship Specialty Start Date End Date Regine Linda MD [address] [place] [id number] PCP - General Family Medicine 10/06/18 documented as of this encounter
--- OUTSIDE RECORDS SUMMARY | 2025-06-20 15:41 | XMS_ITS | Clinical Summary ---
Author Organization [employer] Address [address] [facility] [address] [place] [address] Care Team Providers Care Vice President Quality Assurance Name Role Phone Regine Linda MD Primary Care Provider + Allergies No known active allergies Medications Blood Glucose Monitoring Suppl (Placeling Verio Flex System) w/Device kitIndications:Ty pe 2 diabetes mellitus without complication, without long-term current use of insulin ([facility]) TEST BLOOD SUGAR TWICE DAILY 1 kit 3 Active fluticasone (Flonase) 50 MCG/ACT nasal spray Administer 1 spray into each nostril Once per day. 16 g 2 4 Active losartan-hydroCHL OROthiazide (Hyzaar) 100-12.5 MG tabletIndications :Primary hypertension Take 1 tablet by mouth Once per day. 90 tablet 3 4 08/16/20 25 Active estradiol (Estrace) 0.1 MG/GM vaginal cream 1g vaginally twice weekly as needed 85 g 1 4 Active lovastatin (Mevacor) 20 MG tablet Take [...] area bid prn pain 100 g 3 5 Active SITagliptin (Januvia) 50 MG tabletIndications :Type 2 diabetes mellitus without complication, without long-term current use of insulin ([facility]) Take 1 tablet (50 mg) by mouth Once per day. 90 tablet 3 5 04/27/20 26 Active Calcium Carbonate-Vit D-Min (Caltrate 600+D Plus Minerals) 600-800 MG-UNIT tablet Take 1 tablet by mouth 2 times daily. 180 tablet 3 5 Active Hospital, Clinic, or Other [...] Plan (08/17/2024 6:30 PM EST): Seen by [facility] ENT team and no surgical correction needed. Continue to fu with Dr Navarro Monitor PTH/Ca/Phos levels yearly Assessment & Plan (04/13/2024 12:58 PM EDT): - calcium supplementation for now and followed by Dr. 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 Continue [...] Encounters Date Type Department Care Team Description 05/26/2025 Telephone [facility] [address] [place] [address] Avelina Gray, CHERYL 05/05/2025 Results Follow-Up [facility] [address] [place] [phone] Regine Linda MD Creatinine, Serum, Calcium, Phosphate (As Phosphorus), Additional followed-up results: 6 05/04/2025 Telephone [facility] [address] [place] [phone] Regine Linda MD call back 05/02/2025 Orders Only GENERIC EXTERNAL DATA DEPARTMENT Provider, Generic External Data 04/27/2025 11:15 AM EDT Office Visit [facility] [address] [place] [phone] Regine Linda MD Type 2 diabetes mellitus without complication, without long-term current use of insulin ([facility]) (Primary Dx); Wart of scalp; Encounter for colorectal cancer screening 04/27/2025 Travel 04/26/2025 Telephone [facility] [address] [place] [address] Regine Linda MD chart prep 04/19/2025 Patient Outreach [facility] [address] [place] [phone] Regine Linda MD Pre-visit Planning ([facility] screening completed on 12/07/2024) from Last 3 Months Immunizations Immunization Administration [...] 04/27/2025 11:45 AM EDT Plan of Treatment Upcoming Encounters Date Type Department Care Team (Late st Contact Info) Description 09/26/2025 10:00 AM EST Office Visit [facility] [address] [place] [address] Stephanie Garcia, OD [address] [place] [address] Health Maintenance Due Date Last Done Comments [...] 04/27/2026 04/27/2025 Depression Screening 04/27/2026 04/27/2025, 04/27/20 25 Tobacco Screening 04/27/2026 04/27/2025 Eye Exam 05/06/2026 [...] Procedure Name Priority Date/Time Associated Diagnosis Comments COLLAGEN TYPE I C-TELOPEPTIDE (CTX) Routine 05/02/2025 9:57 AM EDT ALKALINE PHOSPHATASE, BONE SPECIFIC Routine 05/02/2025 9:57 AM EDT CALCIUM, IONIZED Routine 05/02/2025 9:57 AM EDT PTH, INTACT WITHOUT CALCIUM Routine 05/02/2025 9:57 AM EDT VITAMIN D,25-OH,TOTAL,IA Routine 05/02/2025 9:57 AM EDT ALBUMIN Routine 05/02/2025 9:57 AM EDT PHOSPHATE ( PHOSPHORUS) Routine 05/02/2025 9:57 AM EDT CALCIUM Routine 05/02/2025 9:57 AM EDT CREATININE, SERUM Routine 05/02/2025 9:5 7 AM EDT CALCIUM, 24 HOUR URINE (W/ CREATININE) Routine 05/02/2025 8:00 AM EDT CREATININE, 24 HR GROUP Routine 05/02/2025 8:00 AM EDT POCT GLYCATED HEMOGLOBIN, TOTAL Routine 04/27/2025 11:51 AM EDT Type 2 diabetes mellitus without complication, without long-term current use of insulin ([facility]) POCT GLUCOSE Routine 04/27/2025 11:50 AM EDT Type 2 diabetes mellitus without complication, without long-term current use of insulin (CMS/HCC) BI US BREAST LIMITED LEFT Routine 02/15/2025 11:30 AM EDT ALBUMIN, RANDOM URINE W/CREATININE Routine 06/13/2023 10:08 AM EDT LIPID PANEL WITH REFLEX TO DIRECT LDL Routine 06/13/2023 10:00 AM EDT Primary hypertension Type 2 diabetes mellitus without complication, without long-term current use of insulin (CMS/HCC) HM COLONOSCOPY Routine 03/08/2014 3:15 PM EDT from Last 3 Months or Most Recently Relevant to Health Maintenance Results * Collagen Type I C-Telopeptide (CTx) (05/02/2025 9:57 AM EDT) Pathologist [facility] C-Telopeptide (CTx) 350 see note pg/mL [facility] Comment: Unable to flag abnormal result(s), please refer to reference range(s) below:Reference Range, Females: <5 years: Not Established 5-9 years: 574-1849 pg/mL 10-13 years: 519-2415 pg/mL 14-17 years: 242-1291 pg/mL 18-29 years: 64-640 pg/mL 30-39 years: 60-650 pg/mL 40-49 years: 50-465 pg/mL >49 years: Not EstablishedNo reference range is provided for postmenopausal womenbecause of the increased rate of bone turnoverpost-menopause. It is recommended that results forpostmenopausal women be compared to the premenopausalreference range as this will give a better indicationof their rate of bone loss.For additional information, please refer tohttps://[email or web address].NebuAd/faq/FZN325(This link is being provided for informational/educational purposes only.)THIS TEST WAS PERFORMED AT:[employer] [id number] [place] [phone] PHILLIPS MD,PHD 05/02/2025 9:57 AM EDT 05/02/2025 10:02 AM EDT us Generic External Data Provider LAB BLOOD ORDERAB LES Final Result Performing Organization Address City/[facility]/ZIP Co de Phone Number [facility] [address] [place] [address] [phone] * Vitamin D, 25-Hydroxy, Total, Immunoassay (05/02/2025 9:57 AM EDT) Vitamin D 25-OH Total 49.8 >30 ng/mL [facility] Comment: Health Based Reference Values*< 20 ng/mL Wvyrboknt40-56 ng/mL Insufficient> 30 ng/mL Sufficient*Farzad BETHEA. N Engl J Med. 2007;357:266-280There is no well-established upper level of normal vitamin Dlevels. Some laboratories use 50 ng/mL as an upper limit ofnormal. However, toxicity is patient-dependent and may occurat any level. Careful correlation with the patient'spresentation is necessary and, if there is concern forvitamin D toxicity, treatment should be consideredirrespective of the serum level.Care must be taken in interpreting Vitamin D results fromdifferent laboratories and methodologies. Published datademonstrated that results from patients undergoinghemodialysis may show a negative bias when tested withvarious automated 25-OH vitamin D assays when compared toLC-MS/MS.When testing samples from patients whose predominant form ofVitamin D is Vitamin D2, such as patients receiving VitaminD2 supplementation, results that are subtherapeutic shouldbe confirmed with another method such as LC-MS/MS. 05/02/2025 9:57 AM EDT 05/02/2025 10:02 AM EDT us Generic External Data Provider LAB BLOOD ORDERAB LES Final Result Performing Organization Address [facility]/ZIP Co de Phone Number [facility] [address] [place] [address] [phone] * Creatinine, Serum (05/02/2025 9:57 AM EDT) Creatinine, Serum 1.18 0.5 - 1.4 mg/dL [facility] Estimated Glomerular Filt Rate 45 [facility] Comment:Chronic Kidney Disea se: Estimated GFR < 60 mL/min/1.69i3Jbykmo Kidney Disease: Estimated GFR < 15 mL/min/1.73m2 05/02/2025 9:57 AM EDT 05/02/2025 10:02 AM EDT us Generic External Data Provider LAB BLOOD ORDERAB LES Final Result Performing Organization Address [facility] Co de Phone Number [facility] [address] [place] [phone] * Alkaline Phosphatase, Bone Specific (05/02/2025 9:57 AM EDT) Alkaline Phosphatase, Bone Specific 14.1 5.6 - 29.0 mcg/L [facility] Comment:Reference Range, Pre menopausal (mcg/L) 35-45 years 5.0-18.2THIS TEST WAS PERFORMED AT:[employer] [id number] [place] [address]MKGAEJR W. MASON,MD,PHD 05/02/2025 9:57 AM EDT 05/02/2025 10:02 AM EDT us Generic External Data Provider LAB BLOOD ORDERAB LES Final Result Performing Organization Address [facility] Co de Phone Number [facility] [address] [place] [phone] * (ABNORMAL) Phosphate (As Phosphorus) (05/02/2025 9:57 AM EDT) Phosphorus 2.6(L) 2.7 - 4.5 mg/dL [facility] 05/02/2025 9:57 AM EDT 05/02/2025 10:02 AM EDT Generic External Data Provider LAB BLOOD ORDERAB LES Final Result Performing Organization Address [facility] Co de Phone Number [facility] [address] [place] [address] [phone] * (ABNORMAL) PTH, Intact Without Calcium (05/02/2025 9:57 AM EDT) Parathyroid Hormone, Intact 118.6(H) 8.7 - 77.1 pg/mL [facility] 05/02/2025 9:57 AM EDT 05/02/2025 10:02 AM EDT us Generic External Data Provider LAB BLOOD ORDERAB LES Final Result Performing Organization Address [facility] Number [facility] [address] [place] [address] [phone] * Calcium, Ionized (05/02/2025 9:57 AM EDT) Calcium, Ionized 5.3 4.7 - 5.5 mg/dL [facility] Comment:THIS TEST WAS PERFOR MED AT:[employer] [place] [id number] STARKS MD 05/02/2025 9:57 AM EDT 05/02/2025 10:02 AM EDT us Generic External Data Provider LAB BLOOD ORDERAB LES Final Result Performing Organization Address [facility] de Phone Number [facility] [address] [place] [address] [phone] * Calcium (05/02/2025 9:57 AM EDT) Calcium 9.6 8.4 - 10.2 mg/dL [facility] 05/02/2025 9:57 AM EDT 05/02/2025 10:02 AM EDT us Generic External Data Provider LAB BLOOD ORDERAB LES Final Result Performing Organization Address [facility] Co de Phone Number [facility] [address] [place] [address] [phone] * Albumin (05/02/2025 9:57 AM EDT) Albumin Level 4.5 3.5 - 5.0 g/dL [facility] 05/02/2025 9:57 AM EDT 05/02/2025 10:02 AM EDT Generic External Data Provider LAB BLOOD ORDERAB LES Final Result Performing Organization Address [facility] Co de Phone Number [facility] [address] [place] [phone] * CREATININE, 24 HR GROUP (05/02/2025 8:00 AM EDT) Creatinine, 24 Hour Urine 1.4 1.0 - 2.0 G/Day [facility] Creatinine, Urine 69.16 [facility] Urine Total Volume 24 Hour 2,050 mL [facility] 05/02/2025 8:00 AM EDT 05/02/2025 10:46 AM EDT Narrative [facility] - 05/02/2025 12:34 PM EDT [id number] Generic External Data Provider LAB URINE ORDERAB LES Final Result Performing Organization Address City/[facility] Co de Phone Number [facility] [address] [place] [phone] * Calcium, 24 Hour Urine W/ Creatinine (05/02/2025 8:00 AM EDT) Calcium, 24 Hour Urine 72 mg/24 h [facility] Comment:Reference Range 35-2 50 Low calcium diet 35-200 Calcium/Creatini ne Ratio 49 30 - 275 mg/g creat [facility] Creatinine, 24 Hour Urine 1.48 0.50 - 2.15 g/24 h [facility] Comment:THIS TEST WAS PERFOR MED AT:[employer] [place] [id number] STARKS MD 05/02/2025 8:00 AM EDT 05/02/2025 11:25 AM EDT Narrative [facility] - 05/04/2025 6:03 PM EDT [id number] us Generic External Data Provider LAB URINE ORDERAB LES Final Result [facility] [address] [place] [address] [phone] * (ABNORMAL) POCT HGB A1C (04/27/2025 11:51 AM EDT) Hemoglobin A1C 6.6(A) 4.0 - 5.7 % QC Media Lot # [id number] Lot# Expiration Date Blood 04/27/2025 11:5 1 AM EDT Regine Linda MD POINT OF CARE TEST ENTER /EDIT ORDERABLES Final Result * POCT Glucose (04/27/2025 11:50 AM EDT) Glucose Blood, POC 82 60 - 200 mg/dL QC Media Lot # [id number] Lot# Expiration Date [id number] Blood Capillary blood specimen / Unknown 04/27/2025 11:50 AM EDT Regine Linda MD POINT OF CARE TEST ENTER /EDIT ORDERABLES Final Result * BI US Breast Limited Left (02/15/2025 11:30 AM EDT) Anatomical Region Laterality Modality Breast Left Ultrasound 02/15/2025 11:3 0 AM EDT Narrative 02/15/2025 12:51 PM EDT [facility] [address] [place] [address] Ultrasound Report Signed Patient: Ledy Alegria MR#: [id number] : 1955 Acct:[id number] Age/Sex: 69 / F ADM Date: 02/15/25 Loc: HO.MAMMO Attending Dr: Regine Linda MD Ordering Physician: Regine Linda MD Date of Service: 02/15/25 Procedure(s): US breast LT limited mamm only Accession Number(s): [id number] cc: Regine Linda MD EXAMINATION: MM DIAGNOSTIC [...] 02/15/25 1248 DD/ 1130 TD/TT: 02/15/25 1152 Plugman: Procedure Note Donotuseinterpreter, Image - 02/15/2025 [facility] [address] [place] [address] [place] [address] Ultrasound Report Signed Patient: Ledy Alegria LMR#: [id number] : 1955cct:[id number] Age/Sex: 69 / FADM Date: 02/15/25 Loc: HO.MAMMO Attending Dr: Regine Linda MD Ordering Physician: Regine Linda MD Date of Service: 02/15/25 Procedure(s): US breast LT limited mamm only Accession Number(s): [id number] cc: Regine Linda MD EXAMINATION: MM DIAGNOSTIC [...] 02/15/25 1248 DD/ 1130 TD/TT: 02/15/25 1152 Plugman: us eRgine Linda MD IMG US PROCEDURES Final Result * Albumin, Random Urine W/Creatinine (06/13/2023 10:08 AM EDT) Creatinine, Urine 138.71 mg/dL [facility] Microalbumin Urine <5.0 mg/L [facility] Microalbum Creatinine Ratio Ur TNP <30 ug/mg cr [facility] Comment:Unable to calculate albumin/creatinine ratio due to lowmicroalbumin or creatinine result. 06/13/2023 10:0 8 AM EDT 06/13/2023 11:47 AM EDT us Regine Linda MD LAB URINE ORDERABLES Fin al Result [facility] [address] [place] [phone] * (ABNORMAL) Lipid Panel with Reflex to Direct LDL (06/13/2023 10:00 AM EDT) Triglycerides 162(H) <150 mg/dL [facility] Comment:Desirable Triglyceri de: less than 150 mg/dLBorderline High Triglyceride 150-199 mg/dLHigh Triglyceride: 200-499 mg/dLVery High Triglyceride: greater than or equal to 5OO mg/dL Cholesterol 146 <200 mg/dL [facility] Comment:Desirable Cholestero l: less than 200 mg/dLBorderline High Cholesterol: 200-239 mg/dLHigh Cholesterol: greater than 239 mg/dL LDL Cholesterol Calculated 76 <100 mg/dL [facility] Comment:Desirable LDL: less than 100 mg/dLNear Optimal/Above Optimal LDL: 110- 129 mg/dLBorderline High LDL: 130-159 mg/dLHigh LDL: 160-189 mg/dLVery High LDL: greater than or equal to 190 mg/dL HDL Cholesterol 38(L) >40 mg/dL [facility] Comment:Desirable HDL: great er than 40 mg/dL Note: This HDL assay may give artificially low results in patients with liver disease. Blood 06/13/2023 10:0 0 AM EDT 06/13/2023 11:12 AM EDT Regine Linda MD LAB BLOOD ORDERABLES Fin al Result [facility] [address] [place] [phone] [phone] * Hm Colonoscopy (03/08/2014 3:15 PM EDT) Colonoscopy Normal Normal Narrative Ami Benavides - 03/08/2014 3:15 PM EDT Recommended 10 year follow up Historical Provider HEALTH MAINTENANCE Edited Result - Final from Last 3 Months or Most Recently Relevant to Health Maintenance Insurance [id number] DUAL COMPLETE [facility] STANDARD Care Teams Vice President Quality Assurance Relationship Specialty Start Date End Date Regine Linda MD [address] [place] [phone] PCP - General Family Medicine 10/06/18
--- OUTSIDE RECORDS SUMMARY | 2025-06-20 15:41 | XMS_ITS | Clinical Summary ---
Author Organization [facility] Address [address] [address] Phone Care Team Providers Care Powerhouse Mechanic Name Role Phone Unknown, Unknown Primary Care Provider Crista gallagher Allergies Active Allergy Reactions Criticality Noted Date Comments Pollen Extracts 04/01/2024 Medications lovastatin (MEVACOR) 20 MG tablet TAKE 1 TABLET BY MOUTH EVERY DAY IN THE EVENING WITH A MEAL Active calcium carbonate (OS-SHARON) 1,500 mg (600 mg elemental) tablet take 1 tablet once a day PO 04/23/2023 Active losartan-hydroC HLOROthiazide (HYZAAR) 100-12.5 mg per tablet Take 1 tablet by mouth every morning. Active JANUVIA 100 mg tablet Take 100 mg by mouth every morning. Active Active Problems Problem Noted Date Diagnosed Date Hyperparathyroidism 04/01/2024 Social History Tobacco Use Types Packs/Day Years [...] on file Sexual Orientation Not on file Plan of Treatment Health Maintenance Due Date Last Done Comments LIPID PANEL 1955 POTASSIUM LEVEL 1955 DEPRESSION SCREENING 1967 HEPATITIS C SCREENING 1973 COLOGUARD 2000 COLONOSCOPY 2000 COLORECTAL CANCER SCREENING 2000 FIT TEST 2000 FOBT 2000 SIGMOIDOSCOPY 2000 VIRTUAL COLONOSCOPY 2000 PNEUMOCOCCAL VACCINES (50+ years) (1 of 1 - PCV) 2005 ZOSTER VACCINES (1 of 2) 2005 OSTEOPOROSIS SCREENING INITI AL (ONE-TIME) 2020 MAMMOGRAM 12/30/2024 12/30/2022, 06/30/2018 CREATININE LEVEL 04/01/2025 04/01/2024 INFLUENZA VACCINE (#1) 2025 COVID-19 VACCINE (1 - 2023-2 5 season) 2025 RSV VACCINE (1 - 1-dose 75+ series) 2030 Adult Td,Tdap Booster 11/29/2031 11/29/2021 SMOKING STATUS SCREENING (On ce After 26 Yrs) Completed 04/01/2024 HEPATITIS A VACCINES Aged Out No long er eligible based on patient's age to complete this topic HIB VACCINES Aged Out No longer eligi ble based on patient's age to complete this topic MENINGOCOCCAL VACCINES (ACWY) Aged Out No longer eligible based on patient's age to complete this topic MENINGOCOCCAL VACCINES (B) Aged Out N o longer eligible based on patient's age to complete this topic Medical Devices Not on file Procedures Procedure Name Priority Date/Time Associated Diagnosis Comments CREATININE/EGFR Routine 04/01/2024 4:09 PM EDT Hyperparathyroidism from Last 3 Months or Most Recently Relevant to Health Maintenance Results * (ABNORMAL) Creatinine/eGFR (04/01/2024 4:09 PM EDT) CREATININE 1.29 0.6 - 1.5 mg/dL [facility] EGFR 45(L) >59 mL/min/1.7 3m2 [facility] Comment:Estimated glomerular filtration rate calculated using the CKD-EPI refit equation. 04/01/2024 4:09 PM EDT 04/01/2024 4:51 PM EDT us Johnnie Haines MD, FACS LAB BLOOD [place] [address], [facility] from Last 3 Months or Most Recently Relevant to Health Maintenance Insurance [facility] DUAL MEDICARE REPLACEMENT MEDICARE PART A & B [facility] DUAL MEDICARE REPLACEMENT MEDICARE PART A & B [facility] DUAL MEDICARE REPLACEMENT MEDICARE PART A & B [facility] DUAL MEDICARE REPLACEMENT MEDICARE PART A & B [facility] DUAL MEDICARE REPLACEMENT MEDICARE PART A & [facility] DUAL MEDICARE REPLACEMENT MEDICARE PART A & B [facility] Care Teams Powerhouse Mechanic Relationship Specialty Start Date End Date Unknown, Unknown, PCP - General 01/19/24 Additional Source Comments The information contained in this document represents components of the legal health record. It is not the complete legal health record.[facility]
--- OUTSIDE RECORDS SUMMARY | 2025-06-20 15:41 | XMS_ITS | Encounter Summary ---
Author Organization [facility] Address [address] [facility] [address] [place] [phone] Phone Care Team Providers Care Senior Treasury Analyst Name Role Phone Unknown, Unknown Primary Care Provider Crista gallagher Encounter Details Date Type Department Care Team (Late st Contact Info) Description 04/01/2024 Procedure Pass [facility] [address] [place] [address] [place] [address] Social History Tobacco Use Types Packs/Day Years [...] on filedocumented in this encounter Care Teams Senior Treasury Analyst Relationship Specialty Start Date End Date Unknown, Unknown, PCP - General 01/19/24 documented as of this encounter Additional Source Comments The information contained in this document represents components of the legal health record. It is not the complete legal health record.[facility]
== END 2025-06-20 11:43 | disposition home or self-care (01) ==
LOC: HO.ENCR 11:26
PROVIDERS: PCP Internal Medicine; Visit Provider Student in an Organized Health Care Education/Training Program
DX: E34.9 Endocrine disorder, unspecified (principal); M81.0 Age-related osteoporosis without current pathological fracture
CPT/HCPCS: 99214

== ENCOUNTER → 2025-06-20 11:25 | Outpatient (BNVA) | payer MEDICARE, SELFPAY | PROVIDERS: PCP Internal Medicine; Visit Provider Student in an Organized Health Care Education/Training Program | DX: E34.9 Endocrine disorder, unspecified (principal); M81.0 Age-related osteoporosis without current pathological fracture | CPT/HCPCS: 99212 ==